=== PATIENT | female | born 1930 | race American Indian/Alaskan Native ===

== ENCOUNTER 2017-04-08 14:58 | Inpatient (IN) | payer MEDICARE, BC ==
--- NOTE | 2017-04-08 15:31 | ED PDOC ---
Arrival/HPI <Daniele Smith - Last Filed: 04/08/17 18:30> <Brenton Smith DO - Last Filed: 04/08/17 22:23> - General Chief Complaint: Trauma Time Seen by Provider: 04/08/17 15:19 - History of Present Illness Narrative History of Present Illness (Text): 04/08/17 15:47 86 F w/ PMHx pertinent for HTN, Carotid stenosis and CAD on ASA, presents s/p a fall yesterday. Patient's daughter is at bedside also providing history. Patient states that she fell today as well, but her son caught her before she hit the floor. Patient denies hitting her head and denies loss of consciousness. Pt states that she hurt her R wrist and her R hip when she fell. As for the fall yesterday, Patient states that she did not trip and fall, but that she was standing at her dresser and felt herself falling to the ground. Pt denies dizziness, palpitations, and chest pain. Patient also denies any other injury. 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 She does not remember when the last time that she had an ECHO is, but states that she had a monitor ( presumably a holter monitor) 6 months ago for 24 hours. Pt denies f/ch/n/v/d. (Daniele Smith) Past Medical History - Cardiac Hx Hypertension: Yes - Pulmonary Hx Lung Cancer: Yes - Neurological Hx Paralysis: No - Hematological/Oncological Hx Blood Transfusions: No Hx Blood Transfusion Reaction: No Hx Cancer: Yes (right Breast, lung ca) - Musculoskeletal/Rheumatological Hx Musculoskeletal Disorders: Yes Hx Arthritis: Yes Hx Falls: Yes Hx Osteoporosis: Yes - Psychiatric Hx Psychophysiologic Disorder: No Hx Anxiety: No Hx Bipolar Disorder: No Hx Depression: No Hx Emotional Abuse: No Hx Hallucinations: No Hx Panic Disorder: No Hx Post Traumatic Stress Disorder: No Hx Psychosis: No Hx Physical Abuse: No Hx Schizophrenia: No Hx Sexual Abuse: No Hx Substance Use: No - Surgical History Hx Cardiac Catheterization: Yes Hx Coronary Stent: No - Anesthesia Hx Anesthesia: Yes Hx Anesthesia Reactions: No Hx Malignant Hyperthermia: No - Suicidal Assessment Feels Threatened In Home Enviroment: No <Daniele Smith - Last Filed: 04/08/17 18:30> Family/Social History Smoking Status: Former Smoker Hx Alcohol Use: Yes (occassional) Hx Substance Use: No <Daniele Smith - Last Filed: 04/08/17 18:30> Family/Social History: No Known Family HX <Brenton Smith DO - Last Filed: 04/08/17 22:23> Allergies/Home Meds <Daniele Smith - Last Filed: 04/08/17 18:30> <Brenton Smith DO - Last Filed: 04/08/17 22:23> Allergies/Adverse Reactions: Allergies No Known Allergies Allergy (Verified 11/23/13 13:45) Home Medications: Home Meds Medication Instructions Recorded Confirmed Amlodipine Besylate [Norvasc] 10 mg PO QAM 11/23/13 04/08/17 Anastrozole [Arimidex] 1 mg PO DAILY 11/23/13 04/08/17 Aspirin [Aspir 81] 81 mg PO DAILY 11/23/13 04/08/17 Calcium/Cholecalciferol [Vitamin D 125 mg PO Q30D 11/23/13 04/08/17 90 mg-5000 Iu] Carvedilol [Coreg] 25 mg PO BID 11/23/13 04/08/17 Doxazosin Mesylate [Cardura] 1 mg PO HS 11/23/13 04/08/17 Megestrol Acetate [Megace] 40 mg PO BID 11/23/13 04/08/17 traMADol/Acetaminophen [Ultracet 1 tab PO BID PRN 11/23/13 04/08/17 325 MG-37.5 MG] Pentoxifylline [Pentoxil] 1 tab PO DAILY 06/11/16 04/08/17 Rosuvastatin Calcium [Crestor] 10 mg PO DAILY 06/11/16 04/08/17 Pentoxifylline [Pentoxil] 400 mg PO TID 04/08/17 04/08/17 Medical Decision Making <Daniele Smith - Last Filed: 04/08/17 18:30> <Brenton Smith DO - Last Filed: 04/08/17 22:23> ED Course and Treatment: Assessed 04/08/17 13:50 Impression 86 F w/ PMHx pertinent for CAD on ASA presents s/p fall yesterday with injury to her R wrist and R hip. Patient has fallen two other times as well, but was caught by a family member before she hit the ground. Plan - Pt denies any pain, hold pain medications - XR R Hip - XR R Wrist and R Hand - CBC, CMP, UA - Urine Cx - Coags - Cardiac Iso's - Head CT - EKG Reassessed 04/08/17 16:32 - R wrist XR shows distal radial fracture - R hip XR shows indeterminate reading of R hip - CBC shows anemia; base line not determined - Iron & TIBC - CT R Hip - Trope Negative X 1, Coags slightly elevated - CXR shows NSR with First Degree AV Block - UA, Urine Cx pending Reassessed 04/08/17 17:50 - D/w Dr. Chandler. He asked to consult Cardiology, Nephrology, and Orthopedics. He stated that because the pt fell yesterday, there was no need for an emergent orthopedic consult, and that ortho can be consulted tomorrow. - Nurse tech will splint wrist - CT Hip shows oblique comminuted fracture on R hip - UA is negative for UTI -Pt admitted to Dr. Romero service on telemetry (Daniele Smith) 04/08/17 In agreement with resident note, which includes further HPI details. Patient was seen and evaluated with resident, came up with plan and treatment together. (Brenton Smith DO) - Lab Interpretations Lab Results: 04/08/17 15:35 04/08/17 15:35 Lab Results 04/08/17 15:35: Iron 14 L, TIBC 289, % Saturation 5 L 04/08/17 15:35: Sodium 140, Potassium 5.0, Chloride 110 H, Carbon Dioxide 19 L, Anion Gap 16, BUN 25 H, Creatinine 2.2 H, Est GFR ( Amer) 26, Est GFR ( Non-Af Amer) 21, Random Glucose 112 H, Calcium 8.9, Magnesium 2.3 H, Total Bilirubin 0.8, AST 75 H, ALT 92 H, Alkaline Phosphatase 144 H, Lactate Dehydrogenase 581, Total Creatine Kinase 153, Troponin I 0.02 D, Total Protein 6.5, Albumin 3.7, Globulin 2.8, Albumin/Globulin Ratio 1.3 04/08/17 15:35: PT 12.2 H, INR 1.13 H, APTT 24.9 04/08/17 15:35: WBC 10.7 D, RBC 3.51, Hgb 9.3 L, Hct 28.6 L, MCV 81.5, MCH 26.5 , MCHC 32.5, RDW 15.8 H, Plt Count 185, MPV 10.4, Gran % 85.9 H, Lymph % (Auto) 4.3 L, [place] % (Auto) 9.8 H, Eos % (Auto) 0.0 L, Baso % (Auto) 0.0, Gran # 9.18 H , Lymph # 0.5 L, [place] # 1.1 H, Eos # 0.0, Baso # 0.00, Neutrophils % (Manual) 92 H, Band Neutrophils % 0, Lymphocytes % (Manual) 3 L, Atypical Lymphs % 0, Monocytes % (Manual) 5, Immature Lymphocytes 0, Platelet Evaluation Normal - RAD Interpretation Radiology Orders: 04/08/17 15:27 HEAD W/O CONTRAST [CT] Stat HAND RIGHT 3 VIEWS [RAD] Stat HIP MIN 2V W/ PELVIS RT [RAD] Stat WRIST, RIGHT 3 VIEWS [RAD] Stat 04/08/17 15:29 CHEST ONE VIEW [RAD] Stat 04/08/17 17:02 HIP WITHOUT CONTRAST RIGHT [CT] Stat <SarahDaniele Alexiajennyfer - Last Filed: 04/08/17 18:30> - PA / LEGAL SPECIALIST / Resident Statement FERDINAND has reviewed & agrees with the documentation as recorded. FERDINAND has examined the patient and agrees with the treatment plan. - Scribe Statement The provider has reviewed the documentation as recorded by the Scribe <Brenton Smith DO - Last Filed: 04/08/17 22:23> - Scribe Statement 04/08/2017 Aubrie Peoples Provider Scribe Attestation: All medical record entries made by the Scribe were at my direction and personally dictated by me. I have reviewed the chart and agree that the record accurately reflects my personal performance of the history, physical exam, medical decision making, and the department course for this patient. I have also personally directed, reviewed, and agree with the discharge instructions and disposition. (Brenton Smith DO) Disposition/Present on Arrival - Present on Arrival Any Indicators Present on Arrival: Yes History of DVT/PE: No History of Uncontrolled Diabetes: No Urinary Catheter: Yes History of Decub. Ulcer: No History Surgical Site Infection Following: None - Disposition Have Diagnosis and Disposition been Completed?: Yes Disposition Time: 17:40 Patient Plan: Admission, Telemetry <Daniele Smith - Last Filed: 04/08/17 18:30> - Present on Arrival Any Indicators Present on Arrival: No Urinary Catheter: No <Brenton Smith DO - Last Filed: 04/08/17 22:23> - Disposition Diagnosis: Wrist fracture, Fall, Hip fracture, Near syncope Disposition: HOSPITALIZED Patient Problems: Current Active Problems Problem Status Onset Wrist fracture Acute Fall Acute Condition: FAIR
[2017-04-08 16:12] LABS: GRAN # 9.18 (1.4-6.5); GRAN % 85.9 % (50.0-68.0); HEMATOCRIT 28.6 % (36.0-48.0); LYMPH # 0.5 (1.2-3.4); LYMPH % 4.3 % (22.0-35.0); MEAN CELL VOLUME 81.5 fl (80.0-105.0); MEAN CORPUSCULAR HEMOGLOBIN 26.5 pg (25.0-35.0); MEAN CORPUSCULAR HGB CONC 32.5 g/dl (31.0-37.0); MEAN PLATELET VOLUME 10.4 fl (7.0-11.0); MONO # 1.1 (0.1-0.6); MONO % 9.8 % (1.0-6.0); PLATELET COUNT 185 10^3/uL (120.0-450.0); RED CELL DISTRIBUTION WIDTH 15.8 % (11.5-14.5); WHITE BLOOD COUNT 10.7 10^3/ul (4.5-11.0)
[2017-04-08 16:23] LABS: INR 1.13 (0.93-1.08); PARTIAL THROMBOPLASTIN TIME 24.9 Seconds (23.7-30.8)
[2017-04-08 16:25] LABS: ALB/GLOB RATIO 1.3 (1.1-1.8); BILIRUBIN,TOTAL 0.8 mg/dL (0.2-1.3); CALCIUM 8.9 mg/dL (8.4-10.5); MAGNESIUM 2.3 mg/dL (1.7-2.2); TOTAL PROTEIN 6.5 g/dL (5.8-8.3)
[2017-04-08 16:37] LABS: TROPONIN I 0.02 ng/mL
--- NOTE | 2017-04-08 16:52 | CT ---
PROCEDURE: CT HEAD WITHOUT CONTRAST. HISTORY: r/o fx and ICH COMPARISON: None available. TECHNIQUE: Axial computed tomography images were obtained through the head/brain without intravenous contrast. Radiation dose: Total exam DLP = 790.32 mGy-cm. This CT exam was performed using one or more of the following dose reduction techniques: Automated exposure control, adjustment of the mA and/or kV according to patient size, and/or use of iterative reconstruction technique. FINDINGS: HEMORRHAGE: No intracranial hemorrhage. BRAIN: No mass effect or edema. Intracranial atherosclerosis. Mild scattered white matter hypodensities, which are nonspecific, but often seen with chronic microvascular ischemic disease. Please note that MRI with diffusion imaging is more sensitive in the detection of acute ischemic event. VENTRICLES: No hydrocephalus. CALVARIUM: Unremarkable. PARANASAL SINUSES: Unremarkable as visualized. No significant inflammatory changes. MASTOID AIR CELLS: Unremarkable as visualized. No inflammatory changes. OTHER FINDINGS: None. IMPRESSION: Generalized atrophy. Mild scattered nonspecific white matter changes.
--- NOTE | 2017-04-08 17:06 | RAD ---
PROCEDURE: Right wrist radiographs Right hand radiographs HISTORY: r/o fx COMPARISON: None available. FINDINGS: Rotated lateral view. BONES: Impacted comminuted fracture of the distal radius. Fracture of the ulna styloid process. Diffuse osseous demineralization. Degenerative changes. Patient's ring projects over the mid proximal 4th phalanx obscuring evaluation of the underlying osseous detail. JOINTS: No dislocation. SOFT TISSUES: Soft tissue swelling. No evidence of radiopaque foreign body OTHER FINDINGS: None. IMPRESSION: Impacted comminuted fracture of the distal radius. Fracture of the ulna styloid process. Associated soft tissue swelling.
--- NOTE | 2017-04-08 17:10 | RAD ---
Indication: Rule out fracture Right hip with pelvis Comparison: None available Findings: Diffuse osseous demineralization limits evaluation for acute fracture lines. Severe degenerative changes of bilateral hip joints including joint space narrowing. Oblique fracture lines traversing from the right greater trochanter into the proximal femoral shaft inferiorly. Soft tissues appear unremarkable. No evidence of radiopaque foreign body. Impression: Oblique fracture lines traversing from the right greater trochanter into the proximal femoral shaft inferiorly.
--- NOTE | 2017-04-08 17:21 | RAD ---
HISTORY: r/o infiltrate COMPARISON: Chest x-ray performed 08/11/14, CT chest without IV contrast performed 05/09/15 TECHNIQUE: Chest, one view. FINDINGS: LUNGS: Hyperinflation may be seen in the setting of COPD. Right hilar prominence. Eventration of the left hemidiaphragm. Rounded contour at the right lung base abutting the hemidiaphragm possibly related eventration however neoplasm cannot be excluded. PLEURA: No significant pleural effusion identified. No definite pneumothorax . CARDIOVASCULAR: Borderline cardiomegaly. OSSEOUS STRUCTURES: Osseous demineralization. Degenerative changes. Calcific tendinitis, right shoulder. VISUALIZED UPPER ABDOMEN: Unremarkable. OTHER FINDINGS: Right axillary clips. IMPRESSION: Hyperinflation may be seen in the setting of COPD. Right hilar prominence. Rounded contour at the right lung base abutting the hemidiaphragm possibly related eventration however neoplasm cannot be excluded. Eventration of the left hemidiaphragm. CT of the chest suggested for further evaluation, with IV contrast if possible.
[2017-04-08 17:33] LABS: ATYPICAL LYMPHOCYTE 0 % (0.0-0.0); BAND 0 % (0-2); NEUTROPHIL 92 % (50.0-70.0); PLATELET ESTIMATE NORMAL (NORMAL)
[2017-04-08 18:31] LABS: PH,URINE 5.5 (4.7-8.0); URINE BILIRUBIN NEGATIVE (NEGATIVE); URINE BLOOD TRACE-INTACT (NEGATIVE); URINE GLUCOSE (UA) NEGATIVE (NEGATIVE); URINE KETONE TRACE mg/dL (NEGATIVE); URINE LEUKOCYTE ESTERASE NEGATIVE Leu/uL (NEGATIVE); URINE PROTEIN 30 mg/dL (<30 mg/dL); URINE UROBILINOGEN 0.2 E.U./dL (<1 E.U./dL)
[2017-04-08 18:39] LABS: URINE APPEARANCE SL CLOUDY (CLEAR); URINE COLOR YELLOW (YELLOW)
[2017-04-08 18:39] LABS: IRON 14 ug/dL (45-180)
--- NOTE | 2017-04-08 18:42 | CT ---
EXAM: CT Right Lower Extremity Without Intravenous Contrast, Hip EXAM DATE/TIME: 04/08/2017 5:02 PM CLINICAL HISTORY: 86 years old, female; Pain; Hip; Bilateral; Additional info: F/u to x-ray today TECHNIQUE: Axial computed tomography images of the right hip without intravenous contrast. All CT scans at this facility use one or more dose reduction techniques, viz.: automated exposure control; ma/kV adjustment per patient size (including targeted exams where dose is matched to indication; i.e. head); or iterative reconstruction technique. Coronal and sagittal reformatted images were created and reviewed. COMPARISON: DX - HIP MIN 2V W/ PELVIS RT 04/08/2017 4:19:33 PM FINDINGS: Bones/joints: Bony structures are osteopenic. There are degenerative changes. Visualized portion of the right ilium is intact. There is narrowing of the sacroiliac joints. Ischia and pubi are intact. Degenerative changes at both hips joint space narrowing and osteophyte formation. There is subchondral cysts in the right femoral head. There is a minimally comminuted nondisplaced fracture in the proximal femoral diaphysis. Fracture line extends superiorly into the greater trochanter. There is soft tissue swelling in the right hip at the fracture site. Soft tissues: See above. Vasculature: There are vascular calcifications. Bowel: There is a nonobstructed gas pattern in the visualized pelvis. Ileocecal region is unremarkable. There is diverticulosis. Reproductive: Uterus is absent. There are no adnexal masses. IMPRESSION: Minimally comminuted oblique fracture extending from the greater trochanter into the proximal right femoral diaphysis; osteopenia degenerative change Additional findings as described above.
[2017-04-08 18:48] LABS: URINE AMORPHOUS SEDIMENT FEW; URINE BACTERIA MOD (NEG)
[2017-04-08 22:03] VITALS: BMI 18.6
[2017-04-08] MEDS ORDERED: TraMADol/Apap 37.5/325 mg Tab PO PRN (23:26)
[2017-04-09] MEDS: HYDROmorphone 0.5 mg/0.5 ml ISec SC PRN ×3 (00:13→21:30)
[2017-04-09 07:05] LABS: BASO # 0.01 K/mm3 (0.0-2.0); BASO % 0.1 % (0.0-3.0); EOS % 0.3 % (1.5-5.0); GRAN # 5.52 (1.4-6.5); GRAN % 80.5 % (50.0-68.0); LYMPH # 0.6 (1.2-3.4); MEAN CELL VOLUME 81.4 fl (80.0-105.0); MEAN CORPUSCULAR HEMOGLOBIN 25.7 pg (25.0-35.0); MEAN CORPUSCULAR HGB CONC 31.6 g/dl (31.0-37.0); MEAN PLATELET VOLUME 10.3 fl (7.0-11.0); MONO # 0.7 (0.1-0.6); MONO % 10.1 % (1.0-6.0); RED CELL DISTRIBUTION WIDTH 16.2 % (11.5-14.5); WHITE BLOOD COUNT 6.9 10^3/ul (4.5-11.0)
[2017-04-09 07:43] LABS: ALB/GLOB RATIO 1.2 (1.1-1.8); BILIRUBIN,TOTAL 0.6 mg/dL (0.2-1.3); CALCIUM 8.2 mg/dL (8.4-10.5); POTASSIUM 4.7 mmol/L (3.6-5.0); TOTAL PROTEIN 5.4 g/dL (5.8-8.3)
[2017-04-09 08:02] LABS: IRON < 10 ug/dL (45-180)
--- NOTE | 2017-04-09 08:25 | CP.PCM.PCO ---
Physician Communication Note - Physician Communication Note Physician Communication Note: HgB7.9/Needs Hip pinning/2 u PRBC
[2017-04-09 08:46] LABS: HEMATOCRIT 25.2 % (36.0-48.0); MEAN CELL VOLUME 81.6 fl (80.0-105.0); MEAN CORPUSCULAR HEMOGLOBIN 26.2 pg (25.0-35.0); MEAN CORPUSCULAR HGB CONC 32.1 g/dl (31.0-37.0); MEAN PLATELET VOLUME 9.5 fl (7.0-11.0); RED CELL DISTRIBUTION WIDTH 16.1 % (11.5-14.5); WHITE BLOOD COUNT 7.8 10^3/ul (4.5-11.0)
--- NOTE | 2017-04-09 11:10 | CARD ---
APPROVED REPORT EXAM: Two-dimensional and M-mode echocardiogram with Doppler and color Doppler. INDICATION Pre-Op 2D DIMENSIONS Left Atrium (2D)4.0 (1.6-4.0cm)IVSd1.3 (0.7-1.1cm) LVDd4.6 (3.9-5.9cm)PWd1.4 (0.7-1.1cm) LVDs2.8 (2.5-4.0cm)FS (%) 39.6 % LVEF (%)70.2 (>50%) M-Mode DIMENSIONS Aortic Root3.30 (2.2-3.7cm)Aortic Cusp Exc.1.80 (1.5-2.0cm) Aortic Valve AoV Peak Lztyrsfz477.0cm/Matthew Peak GR.13mmHg Mitral Valve MV E Vxdzxszt97.6cm/sMV A Iuydwkdn95.6cm/sE/A ratio0.8 TDI Lateral E' Peak V9.75cm/sMedial E' Peak V6.73cm/sE/Lateral E'8.2 E/Medial E'11.8 Pulmonary Valve PV Peak Tznpdrxu87.0cm/sPV Peak Grad.3mmHg Tricuspid Valve TR Peak Geqhynka748xl/sRAP AHBNKXSK00xyEoHV Peak Gr.40mmHg IMXZ86voLo LEFT VENTRICLE The left ventricle is normal size. There is mild concentric left ventricular hypertrophy. The left ventricular function is normal.EF-65-70% There is normal LV segmental wall motion. Transmitral Doppler flow pattern is Grade III-reversible restrictive diastolic dysfunction. No left ventricle thrombus noted on this study. There is no ventricular septal defect visualized. There is no left ventricular aneurysm. There is no mass noted in the left ventricle. RIGHT VENTRICLE The right ventricle is normal size. There is normal right ventricular wall thickness. The right ventricular systolic function is normal. ATRIA The left atrium is borderline dilated. The right atrium size is normal. The interatrial septum is intact with no evidence for an atrial septal defect. AORTIC VALVE The aortic valve is thickened but opens well. No aortic regurgitation is present. There is no aortic valvular stenosis. There is no aortic valvular vegetation. MITRAL VALVE The mitral valve is thickened but opens well. Mitral regurgitation is mild. There is no mitral valve stenosis. There is no evidence of mitral valve prolapse. TRICUSPID VALVE The tricuspid valve leaflets are thickened , but open well. There is mild tricuspid regurgitation.RVSP-50 mmof Hg. There is mild pulmonary hypertension. There is no tricuspid valve stenosis. There is no tricuspid valve prolapse or vegetation. PULMONIC VALVE The pulmonic valve is borderline thickened. There is trace pulmonic valvular regurgitation. There is no pulmonic valvular stenosis. GREAT VESSELS The aortic root is normal in size. The ascending aorta is normal in size. The pulmonary artery is normal. The IVC is normal in size and collapses >50% with inspiration. PERICARDIAL EFFUSION There is no pleural effusion. There is no pericardial effusion. <Conclusion> Normal chamber Size. EF-65-70%. Mild MR. MIld TR. RVSP-50 mmof Hg. No Pericardial effusion.
--- NOTE | 2017-04-09 12:01 | CON ---
DATE: 04/09/2017 LOCATION: The patient is in 272, bed [address]. HISTORY OF PRESENT ILLNESS: An 86-year-old female tripped and fell before admission, sustained a fracture of the right distal radius and right hip at the intertrochanteric region. She is being prepared for surgery by Dr. Romero and Dr. Portillo, and the patient was told that the surgery is the only way we could help her to get her up out of bed and stop the pain of the fracture. When the patient is medically cleared, we could perform ORIF of the right hip with and thert wrist fractur and to put a cast on her right wrist. She is left-hand dominant. She has signed a consent. The family was notified and we can proceed with surgery when she is cleared medically. FINAL DIAGNOSES: 1. Unstable intertrochanteric fracture, right hip. 2. impacted fracture, right distal radius. PLAN: To do surgery on the right hip and a cast on the right wrist. Sudheer Hsu DO ELEAZAR
[2017-04-09] MEDS ORDERED: Bupivacaine 0.5% Inj(30mL) ONE (13:49)
--- NOTE | 2017-04-09 14:18 | CON ---
CONSULT SERVICE: Cardiology. REASON FOR THE CONSULTATION: Follow-up preop evaluation for a right forearm OR internal fixation, status post fall and status post fracture. BRIEF CLINICAL HISTORY: This is an 86-year-old female with past medical history significant for hypertension, hyperlipidemia, nonobstructive coronary artery disease, status post cardiac catheterization 02/2014, history of lung CA wedge resection, history of breast CA status post mastectomy 10 years ago, history of hypertension, hyperlipidemia, who fell down and sustained right wrist fracture and forearm fracture requiring an OR internal fixation. Denies any chest pain. Denies any shortness of breath. Denies any palpitations. PAST MEDICAL HISTORY: Significant for hypertension, hyperlipidemia, abnormal stress test in 02/18/2014 following which the patient underwent catheterization that revealed nonobstructive coronary artery disease. PAST SURGICAL HISTORY: Significant for status post wedge resection of the right upper lobe of the lung on 02/24/2014, history of breast CA status post mastectomy followed by chemotherapy and radiation therapy. Previous cardiac workup as follows: The patient had a stress test on 02/2014 the preop evaluation for lung resection that was abnormal. The patient underwent cardiac catheterization dated 02/18/2014 that showed nonobstructive coronary artery disease limited only to the diagonal 1, 55% ostial disease, small caliber vessel, major epicardial coronary artery, LAD, RCA, circumflex essentially for significant disease, non-flow obstructive stenosis, LV function ejection fraction 62% to 65%, medical treatment recommended. The patient was cleared for surgery. The patient had repeat stress test done on 06/11/2016 that showed equivocal SPECT myocardial study, mildly reversible distal anteroseptal infarct, defect could be due to ischemia vs changing rest position, normal Gated valve motion. When compared to previous study dated 02/12/2014, the scan findings are similar. It is important to mention that first stress test was done on 02/12/2014 following this cardiac catheterization that revealed nonobstructive coronary artery disease. Recent stress test dated 06/11/2016, no change from before. The patient had echocardiography done in the past dated 02/11/2014 that showed ejection fraction preserved 60% to 65%, diastolic dysfunction, trace aortic regurgitation, lkueh-bd-vvvu mitral regurgitation, uktx-fn-aptjtkmp tricuspid regurgitation, RV systolic pressure of 48. CURRENT MEDICATIONS: At home, the patient was taking pentoxifylline 400 mg 3 times a day, Norvasc 10 mg daily, tramadol 1 tablet daily, Crestor 10 mg daily, Megace, Cardura 1 mg p.o. at bedtime, Coreg 25 mg b.i.d., aspirin 81 mg and Arimidex 1 mg daily for breast CA. REVIEW OF SYSTEMS: As per HPI. PHYSICAL EXAMINATION: GENERAL: Height of the patient 5 feet 6 inches, weight of the patient 115 pounds, body mass index 18.6 kg/m2. VITAL SIGNS: Temperature afebrile, heart rate 58, blood pressure 142/49. HEENT: PERRLA. Extraocular muscles intact. NECK: Supple. No carotid bruit. No thyromegaly. CHEST: Clear to auscultation. HEART: S1 and S2, regular. ABDOMEN: Soft. EXTREMITIES: Clubbing and cyanosis negative. LABORATORY DATA: Blood workup as follows: WBC 7.8, hemoglobin 8.1, hematocrit 25.2, platelet count 137. Chemistry shows sodium 141, potassium 4.7, chloride 113, carbon dioxide 20, anion gap of 13, BUN 25, creatinine 2. IMPRESSION: Status post fall, status post fracture right forearm requiring OR internal fixation, history of hypertension, hyperlipidemia, preserved LV function, ejection fraction 60% to 65%, trace aortic regurgitation, fnnd-gp-lwhiawce mitral regurgitation, fbdg-qi-hgklqqxw tricuspid regurgitation, RV systolic pressure of 48 dated 02/11/2014. The patient had a cardiac catheterization dated 02/18/2014, nonobstructive coronary artery disease only limited to diagonal 1, history of breast CA status post mastectomy, status post wedge resection of the lung. RECOMMENDATION: No absolute contraindication for surgery. No evidence of ischemia. No evidence of chest pain, arrhythmia, or congestive heart failure. The patient is cleared to go from cardiology point of view, though the patient has baseline anemia, we will wait repeat stat CBC. If the hemoglobin repeat is less than 8, we will give 2 units of blood, prepare for surgery. The patient has renal insufficiency. We will look into it that whether this is old or new because it appears when we look closely the patient had renal insufficiency dated 08/11/2014 with 2.7 creatinine. In 2013, the patient was normal, was given gentle hydration and monitored H and H. We will also do the anemia basic workup, iron level, TIBC, ferritin, B12 folate level, and repeat stat CBC. If the hemoglobin is less than 8, we will give 2 units of packed RBC. We will follow with you. Discussed with Dr. 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 Continue perioperative beta gt. We will also get lipid profile, TSH, hemoglobin A1c tomorrow and we will get echo. We will follow with you. Talia Al MD cc: Dr. Romero and Dr. Sudheer Hsu.
[2017-04-09] MEDS ORDERED: Rocuronium 10 mg/ml (5 ml) ONE (14:22)
[2017-04-09] MEDS ORDERED: Etomidate 20 mg/10ml Inj IV ONE (14:22)
[2017-04-09] MEDS ORDERED: Succinylcholine 200 mg/10 ml Inj IV ONE (14:22)
[2017-04-09] MEDS ORDERED: ePHEDrine 50 mg/ml Inj ONE (15:09)
[2017-04-09] MEDS ORDERED: Thrombin Topical 5,000 IU Spray Kit ONE (16:03)
[2017-04-09] MEDS ORDERED: Absorbable Gelatin Sponge Size 100 ONE (16:03)
[2017-04-09] MEDS ORDERED: Absorbable Gelatin Sponge Size 12-7 ONE (16:03)
[2017-04-09] MEDS ORDERED: Glycopyrrolate 0.2 mg/ml (2ml vial) ONE (16:57)
[2017-04-09] MEDS ORDERED: HYDROmorphone 0.5 mg/0.5 ml ISec IVP PRN (17:29)
[2017-04-09] MEDS ORDERED: Sodium Chloride 0.9% 1,000 ML IV SCH (17:30)
[2017-04-09] MEDS ORDERED: HYDROmorphone 0.5 mg/0.5 ml ISec SC PRN (17:34)
[2017-04-09] MEDS ORDERED: HYDROmorphone 0.5 mg/0.5 ml ISec ONE (18:17)
[2017-04-09] MEDS ORDERED: HYDROmorphone 0.5 mg/0.5 ml ISec IVP ONE (18:17)
--- NOTE | 2017-04-09 18:22 | HP ---
LOCATION: Room 272, bed 1. CHIEF COMPLAINT: Multiple falls-fracture hip, wrist. HISTORY OF PRESENT ILLNESS: The patient is an 86-year-old -[place] female, who has been in her usual state of health with only mild weight loss, presumptively dietary for the past 3 to 4 months. She has noted, in the last 2 days, 3 episodes of syncope without any initiating cause or set of symptomatology. She would be standing and all of a sudden find herself falling to the floor. One time, her son caught her and kept her from falling. On the day of admission, she is brought to the emergency room by her family, because she is having trouble walking and her wrist is black and blue and cannot grasp. X-rays in the emergency room demonstrated fracture of hip with impaction and fracture of the radius and ulna styloid. PAST MEDICAL HISTORY: Includes carcinoma of the breast with Arimidex for the past 11 years and carcinoma of the lung totally free of any disease for 4 years. Other medical histories include hypertension with some prerenal insufficiency and peripheral vascular disease with claudication in her calf, right greater than left on one-half block traveling. MEDICATIONS: Include Trental 400 t.i.d., Norvasc 10, Ultracet b.i.d., Crestor 10, Megace 40 b.i.d., Cardura 1 at bedtime, Coreg 25 b.i.d., aspirin 81 daily, Arimidex 1 mg and calcium 125 with vitamin D 5000 monthly. ALLERGIES: NONE. PHYSICAL EXAMINATION: GENERAL: She is 5 feet 6 inches, 115 pounds and she has obvious fractures of the right wrist and hip with diminished pedal pulses. VITAL SIGNS: Stable. RESPIRATION: Clear without any effort. EYES: Her conjunctivae are pale. IMMEDIATE LABORATORY DATA: Shows a hemoglobin of 8.9 dropping by morning to 7.9, presumptively secondary to bleeding into the hip. IMPRESSION UPON CONSULTATION: 1. Syncope with falls. 2. Fracture of the hip. 3. Fracture of the right wrist. 4. Peripheral arterial disease. 5. Chronic renal disease. This dictation will be signed without being read. José Romero MD [facility] # [id number]
[2017-04-09] MEDS: Dextrose 5%/0.45% NS 1,000 ML IV SCH (19:04)
[2017-04-09 19:28] LABS: BASO # 0.01 K/mm3 (0.0-2.0); BASO % 0.1 % (0.0-3.0); EOS % 0.1 % (1.5-5.0); GRAN % 82.9 % (50.0-68.0); HEMATOCRIT 30.1 % (36.0-48.0); LYMPH # 0.5 (1.2-3.4); LYMPH % 3.9 % (22.0-35.0); MEAN CELL VOLUME 83.6 fl (80.0-105.0); MEAN CORPUSCULAR HEMOGLOBIN 27.5 pg (25.0-35.0); MEAN CORPUSCULAR HGB CONC 32.9 g/dl (31.0-37.0); MEAN PLATELET VOLUME 10.9 fl (7.0-11.0); MONO # 1.7 (0.1-0.6); PLATELET COUNT 133 10^3/uL (120.0-450.0); RED CELL DISTRIBUTION WIDTH 15.4 % (11.5-14.5); WHITE BLOOD COUNT 12.9 10^3/ul (4.5-11.0)
[2017-04-09 20:20] LABS: BAND 1 % (0-2); NEUTROPHIL 92 % (50.0-70.0)
[2017-04-09 20:21] LABS: ANISOCYTOSIS SLIGHT; BURR CELLS SLIGHT; OVALOCYTES SLIGHT; PLATELET ESTIMATE NORMAL (NORMAL)
--- NOTE | 2017-04-09 21:40 | CP.PCM.PN ---
Subjective - Date & Time of Evaluation Date of Evaluation: 04/09/17 Time of Evaluation: 21:37 - Subjective Subjective: S:Nurse requested to insert a heparin lock. Patient has no complaints. Pertinent medical record was reviewed. O: Last Vital Signs 3 Temp 97.8 F 04/09/17 18:23 Pulse 64 04/09/17 18:23 Resp 20 04/09/17 18:23 BP 101/60 04/09/17 19:01 Pulse Ox 100 04/09/17 18:23 Awake , alert , not in distress. LUNGS: Normal breathing [attern. A: Poor venous access. Encounter for intravenous line placement. P: # 24 angiocath was inserted in left forearm. Objective - Vital Signs/Intake and Output Vital Signs (last 24 hours): Temp Pulse Resp BP Pulse Ox 97.8 F 64 20 101/60 100 04/09/17 18:23 04/09/17 18:23 04/09/17 18:23 04/09/17 19:01 04/09/17 18:23 Intake and Output: 04/09/17 04/10/17 18:59 06:59 Intake Total 366 Output Total 300 Balance 66 - Medications Medications: Current Medications Anastrozole (Arimidex 1 Mg Tab) 1 mg PO DAILY [facility] Last Admin: 04/09/17 11:25 Dose: Not Given Carvedilol (Coreg) 25 mg PO BID [facility] Last Admin: 04/09/17 19:01 Dose: Not Given Darbepoetin Jordy (Aranesp) 60 mcg SC ONCE ONE Stop: 04/10/17 10:01 Doxazosin Mesylate (Cardura) 1 mg PO 2200 [facility] Last Admin: 04/09/17 21:29 Dose: 1 mg Hydromorphone HCl (Dilaudid) 0.5 mg SC Q4H PRN PRN Reason: Pain, severe (8-10) Last Admin: 04/09/17 21:30 Dose: 0.5 mg Hydromorphone HCl (Dilaudid) 0.5 mg SC Q4H PRN PRN Reason: Pain, moderate (4-7) Dextrose/Sodium Chloride (Dextrose 5%/0.45% Ns 1000 Ml) 1,000 mls @ 60 mls/hr IV .[id number] [facility] Last Admin: 04/09/17 19:04 Dose: 60 mls/hr Polysaccharide Iron Complex (Ferrex-150) 150 mg PO DAILY [facility] Tramadol/Acetaminophen (Ultracet 37.5/325 Mg) 1 tab PO Q4H PRN PRN Reason: Pain, moderate (4-7) - Labs Labs: 04/09/17 19:25 04/09/17 05:15 PT 12.2 Seconds (9.9-11.8) H 04/08/17 15:35 INR 1.13 (0.93-1.08) H 04/08/17 15:35 APTT 24.9 Seconds (23.7-30.8) 04/08/17 15:35
--- NOTE | 2017-04-09 23:13 | CP.PCM.CON ---
<Jovanny Pedraza - Last Filed: 04/09/17 23:00> History of Present Illness - History of Present Illness History of Present Illness: Neurology Consult Note for Dr. Smith Service Consulted for: Syncope, multiple falls HPI: This is an 86 yo AA F with PMH of HTN, Carotid Stenosis, CAD on s/p cath on ASA, PVD, pre-renal insufficiency, Lung carcinoma (remission x4 yrs), and Breast Ca (on Arimidex x11 yrs, current) who presented to [facility] with complaint of 3 episodes of falls, which family are reporting as syncopal episodes, but which patient reports only as falls with unclear etiology (specifically denies tripping, balance loss, syncope/near-syncope, or acute focal/generalized weakness, but cannot clearly describe how she keeps falling). Denies LOC, head trauma, room-spinning, paresthesias; reports being cuaght by family during previous episodes, but was alone at time of this episode, and landed on her R arm and hip. Denies any sick contacts or recent travel. Denies chest pain, shortness of breath, diarrhea, melena/hematochezia, straining when moving bowels , palpitations, or gaps in memory. Admits to nausea x2-3 days, lack of appetite progressively worsening for > 1 month, and chronic constipation ( usually moves bowels once per 2-3 days). All other ROS in 12-point system review were negative. Of note from ED documentation, at time of admission, patient reported to ED staff a cardiac stress test 1 yr ago that was indeterminate, and a 24-hour holter monitor approximately 6 months prior (results unknown by pt). PMH: as above PSH: Prior cardiac cath, pending R-hip ORIF today FHx: Denies SHx: Admits former tobacco use (~2ppd x 30 yrs, no use in last 17 yrs), admits social EtOH (denies binge episode within last 4 wks), denies IVDA/illicits PMD: Dr. Romero Review of Systems - Review of Systems All systems: reviewed and no additional remarkable complaints except (as per HPI ) Past Patient History - Past Social History Smoking Status: Former Smoker - CARDIAC Hx Hypertension: Yes - PULMONARY Hx Lung Cancer: Yes - NEUROLOGICAL Hx Paralysis: No - HEMATOLOGICAL/ONCOLOGICAL Hx Blood Transfusions: Yes Hx Blood Transfusion Reaction: No - MUSCULOSKELETAL/RHEUMATOLOGICAL Hx Arthritis: Yes Hx Falls: Yes Hx Fractures: Yes Hx Osteoporosis: Yes - PSYCHIATRIC Hx Substance Use: No - SURGICAL HISTORY Hx Surgeries: Yes - ANESTHESIA Hx Anesthesia Reactions: No Hx Malignant Hyperthermia: No Meds Allergies/Adverse Reactions: Allergies Allergy/AdvReac Type Severity Reaction Status Date / Time No Known Allergies Allergy Verified 11/23/13 13:45 - Medications Medications: Current Medications Anastrozole (Arimidex 1 Mg Tab) 1 mg PO DAILY [facility] Last Admin: 04/09/17 11:25 Dose: Not Given Carvedilol (Coreg) 25 mg PO BID [facility] Last Admin: 04/09/17 19:01 Dose: Not Given Darbepoetin Jordy (Aranesp) 60 mcg SC ONCE ONE Stop: 04/10/17 10:01 Doxazosin Mesylate (Cardura) 1 mg PO 2200 [facility] Last Admin: 04/09/17 21:29 Dose: 1 mg Hydromorphone HCl (Dilaudid) 0.5 mg SC Q4H PRN PRN Reason: Pain, severe (8-10) Last Admin: 04/09/17 21:30 Dose: 0.5 mg Hydromorphone HCl (Dilaudid) 0.5 mg SC Q4H PRN PRN Reason: Pain, moderate (4-7) Dextrose/Sodium Chloride (Dextrose 5%/0.45% Ns 1000 Ml) 1,000 mls @ 60 mls/hr IV .[id number] [facility] Last Admin: 04/09/17 19:04 Dose: 60 mls/hr Polysaccharide Iron Complex (Ferrex-150) 150 mg PO DAILY [facility] Tramadol/Acetaminophen (Ultracet 37.5/325 Mg) 1 tab PO Q4H PRN PRN Reason: Pain, moderate (4-7) Physical Exam - Constitutional Appears: Non-toxic, No Acute Distress - Head Exam Head Exam: ATRAUMATIC, NORMAL INSPECTION, NORMOCEPHALIC - Eye Exam Eye Exam: EOMI, Normal appearance, PERRL. absent: Conjunctival injection, Scleral icterus Pupil Exam: NORMAL ACCOMODATION. absent: Fixed, Irregular, Unequal - ENT Exam ENT Exam: Mucous Membranes Dry. absent: Mucous Membranes Moist - Neck Exam Neck exam: Positive for: Full Rom, Normal Inspection. Negative for: Tenderness - Respiratory Exam Respiratory Exam: Decreased Breath Sounds (mild-moderate decreased breath sounds in all kramer), Clear to Auscultation Bilateral, Prolonged Expiratory Phase. absent: Accessory Muscle Use, Chest Wall Tenderness, Rales, Rhonchi, Wheezes, NORMAL BREATHING PATTERN - Cardiovascular Exam Cardiovascular Exam: REGULAR RHYTHM, RRR, +S1, +S2. absent: Bradycardia, Tachycardia, Irregular Rhythm, +S4 - GI/Abdominal Exam GI & Abdominal Exam: Normal Bowel Sounds, Soft. absent: Diminished Bowel Sounds , Distended, Firm, Hyperactive Bowel Sounds, Hypoactive Bowel Sounds, Pulsatile Mass, Rigid, Tenderness - Rectal Exam Rectal Exam: Deferred - Extremities Exam Extremities exam: Positive for: pedal pulses present (+1 radials and dorsalis pedis pulses bilaterally). Negative for: calf tenderness, normal inspection ( pain with any RLE movement, tenderness to palpation proximate to R-hip), pedal edema - Neurological Exam Additional comments: Awake and alert, following all commands as able and appropriate, oriented x 3.5 (self, location, time, able to describe who the president is but unable to remember the name) Gross movement of bilateral UE intact and appropriate, 5/5 UE strength, 5/5 L UE outpatient services director strength Movement of R fingers intact, sensation intact, unable to test outpatient services director strength due to splinting/bandaging of RUE Gross movement of RLE intact and appropriate, 5/5 strength Sensation in bilateral LE intact and equal 5/5 bilateral foot flexion/extension - Psychiatric Exam Psychiatric exam: Normal Affect, Normal Mood - Skin Skin Exam: Dry, Intact, Normal Color, Warm Results - Vital Signs Recent Vital Signs: Last Vital Signs Temp 97.8 F 04/09/17 18:23 Pulse 64 04/09/17 18:23 Resp 20 04/09/17 18:23 BP 101/60 04/09/17 19:01 Pulse Ox 100 04/09/17 18:23 - Labs Result Diagrams: 04/09/17 19:25 04/09/17 05:15 Labs: Laboratory Results - last 24 hr 04/09/17 04/09/17 04/09/17 05:15 05:15 05:15 WBC 6.9 D RBC 3.07 L Hgb 7.9 L Hct 25.0 L MCV 81.4 MCH 25.7 MCHC 31.6 RDW 16.2 H Plt Count 139 MPV 10.3 Gran % 80.5 H Lymph % (Auto) 9.0 L [place] % (Auto) 10.1 H Eos % (Auto) 0.3 L Baso % (Auto) 0.1 Gran # 5.52 Lymph # 0.6 L [place] # 0.7 H Eos # 0.0 Baso # 0.01 Neutrophils % (Manual) Band Neutrophils % Lymphocytes % (Manual) Monocytes % (Manual) Platelet Evaluation Anisocytosis (manual) Ovalocytes [place]annie Cells Sodium 141 Potassium 4.7 Chloride 113 H Carbon Dioxide 20 L Anion Gap 13 BUN 25 H Creatinine 2.0 H Est GFR ( Amer) 29 Est GFR (Non-Af Amer) 24 Random Glucose 77 Calcium 8.2 L Iron TIBC % Saturation Ferritin Total Bilirubin 0.6 AST 75 H ALT 81 H Alkaline Phosphatase 120 Total Protein 5.4 L Albumin 3.0 Globulin 2.5 Albumin/Globulin Ratio 1.2 Vitamin B12 Folate Blood Type A POSITIVE Antibody Screen Negative Crossmatch See Detail BBK History Checked Patient has bt 04/09/17 04/09/17 04/09/17 05:15 07:34 08:07 WBC 7.8 RBC 3.09 L Hgb 8.1 L Hct 25.2 L MCV 81.6 MCH 26.2 MCHC 32.1 RDW 16.1 H Plt Count 137 MPV 9.5 Gran % Lymph % (Auto) [place] % (Auto) Eos % (Auto) Baso % (Auto) Gran # Lymph # [place] # Eos # Baso # Neutrophils % (Manual) Band Neutrophils % Lymphocytes % (Manual) Monocytes % (Manual) Platelet Evaluation Anisocytosis (manual) Ovalocytes [place] Cells Sodium Potassium Chloride Carbon Dioxide Anion Gap BUN Creatinine Est GFR ( Amer) Est GFR (Non-Af Amer) Random Glucose Calcium Iron < 10 L TIBC 249 L % Saturation TNP Ferritin 111.0 Total Bilirubin AST ALT Alkaline Phosphatase Total Protein Albumin Globulin Albumin/Globulin Ratio Vitamin B12 271 Folate 4.0 Blood Type Antibody Screen Crossmatch BBK History Checked 04/09/17 19:25 WBC 12.9 H D RBC 3.60 Hgb 9.9 L Hct 30.1 L MCV 83.6 MCH 27.5 MCHC 32.9 RDW 15.4 H Plt Count 133 MPV 10.9 Gran % 82.9 H Lymph % (Auto) 3.9 L [place] % (Auto) 13.0 H Eos % (Auto) 0.1 L Baso % (Auto) 0.1 Gran # 10.70 H Lymph # 0.5 L [place] # 1.7 H Eos # 0.0 Baso # 0.01 Neutrophils % (Manual) 92 H Band Neutrophils % 1 Lymphocytes % (Manual) 5 L Monocytes % (Manual) 2 Platelet Evaluation Normal Anisocytosis (manual) Slight Ovalocytes Slight [place] Cells Slight Sodium Potassium Chloride Carbon Dioxide Anion Gap BUN Creatinine Est GFR ( Amer) Est GFR (Non-Af Amer) Random Glucose Calcium Iron TIBC % Saturation Ferritin Total Bilirubin AST ALT Alkaline Phosphatase Total Protein Albumin Globulin Albumin/Globulin Ratio Vitamin B12 Folate Blood Type Antibody Screen Crossmatch BBK History Checked Assessment & Plan - Assessment and Plan (Free Text) Assessment: This is an 86 yo AA F with PMH of HTN, Carotid Stenosis, CAD on s/p cath on ASA , PVD, pre-renal insufficiency, Lung carcinoma (remission x4 yrs), and Breast Ca (on Arimidex x11 yrs, current) who presented to [facility] with complaint of 3 episodes of falls, which family are reporting as syncopal episodes, but which patient reports only as falls with unclear etiology. Her possible syncope and falls appear to be more hematologic and cardiac in nature. Her baseline Hgb as per prior charting while at [facility] was 10-11, and was 7.9 after receiving IVF on this admission; however she has had regular blood work with Dr. Koenig during the interval between [facility] admissions, will need to follow up on most recent CBCs. Also may be a metabolic component in the setting of worsening renal dysfxn vs JOSE, and an orthostatic/hypotensive component due to poor PO food and fluid intake with recent reported emesis. Does not appear to be grossly neurologic in nature; head CT notable for generalized atrophy mild non-specific scattered white-matter changes, but not for any acute pathology. Plan: 1) Hgb 7.9, baseline 10-11 on prior charting; pending tranfusion with pRBCs as per Primary 2) Encourage PO intake, IVF fluid rehydration 3) Pending R-hip ORIF as per Ortho, PT/OT with likely need for rehab post-ORIF 4) Iron panel notable for low iron, low normal B12, and low-normal MCV with elevated RDW (suggestive of multifactorial anemia vs iron-deficient), would recommend Iron and B12 supplementation Patient seen, reviewed, and discussed with attending, Dr. Smith. <Wellington Smith - Last Filed: 04/10/17 10:08> Meds - Medications Medications: Current Medications Anastrozole (Arimidex 1 Mg Tab) 1 mg PO DAILY [facility] Last Admin: 04/09/17 11:25 Dose: Not Given Carvedilol (Coreg) 25 mg PO BID [facility] Last Admin: 04/09/17 19:01 Dose: Not Given Doxazosin Mesylate (Cardura) 1 mg PO 2200 [facility] Last Admin: 04/09/17 21:29 Dose: 1 mg Hydromorphone HCl (Dilaudid) 0.5 mg SC Q4H PRN PRN Reason: Pain, severe (8-10) Last Admin: 04/10/17 04:40 Dose: 0.5 mg Hydromorphone HCl (Dilaudid) 0.5 mg SC Q4H PRN PRN Reason: Pain, moderate (4-7) Dextrose/Sodium Chloride (Dextrose 5%/0.45% Ns 1000 Ml) 1,000 mls @ 60 mls/hr IV .[id number] [facility] Last Admin: 04/09/17 19:04 Dose: 60 mls/hr Polyethylene Glycol (Miralax) 17 gm PO DAILY [facility] Polysaccharide Iron Complex (Ferrex-150) 150 mg PO DAILY [facility] Tramadol/Acetaminophen (Ultracet 37.5/325 Mg) 1 tab PO Q4H PRN PRN Reason: Pain, moderate (4-7) Results - Vital Signs Recent Vital Signs: Last Vital Signs Temp 98.2 F 04/10/17 06:00 Pulse 59 L 04/10/17 06:00 Resp 20 04/10/17 06:00 BP 129/55 L 04/10/17 06:00 Pulse Ox 100 04/10/17 06:00 - Labs Result Diagrams: 04/09/17 19:25 04/09/17 05:15 Labs: Laboratory Results - last 24 hr 04/09/17 04/09/17 04/09/17 05:15 08:07 19:25 WBC 12.9 H D RBC 3.60 Hgb 9.9 L Hct 30.1 L MCV 83.6 MCH 27.5 MCHC 32.9 RDW 15.4 H Plt Count 133 MPV 10.9 Gran % 82.9 H Lymph % (Auto) 3.9 L [place] % (Auto) 13.0 H Eos % (Auto) 0.1 L Baso % (Auto) 0.1 Gran # 10.70 H Lymph # 0.5 L [place] # 1.7 H Eos # 0.0 Baso # 0.01 Neutrophils % (Manual) 92 H Band Neutrophils % 1 Lymphocytes % (Manual) 5 L Monocytes % (Manual) 2 Platelet Evaluation Normal Anisocytosis (manual) Slight Ovalocytes Slight [place] Cells Slight Ferritin 111.0 Vitamin B12 271 Folate 4.0 Blood Type A POSITIVE Antibody Screen Negative Crossmatch See Detail BBK History Checked Patient has bt Attending/Attestation - Attestation I have personally seen and examined this patient.: Yes I have fully participated in the care of the patient.: Yes I have reviewed all pertinent clinical information: Yes
--- NOTE | 2017-04-10 00:29 | CARD ---
APPROVED REPORT EKG Measurement Heart [id number] <Conclusion> Sinus rhythm with 1st degree AV block Otherwise normal ECG
--- NOTE | 2017-04-10 01:47 | CON ---
DATE: 04/09/2017 The patient is admitted for José Romero MD. REFERRING DOCTOR: José Romero MD. REASON FOR CONSULTATION: Evaluation of a patient who presents with an elevated BUN and creatinine in the setting of a fall and a right hip and right forearm fracture. HISTORY OF PRESENT ILLNESS: The patient is an 86-year-old white female with a history of hypertension, history of renal artery stenosis, history of chronic kidney disease stage III-IV, she did have a creatinine of 2.7 back in 2014. 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 The patient was brought into the emergency room for a fall and was found to have a right hip fracture and a right forearm fracture. We were asked to evaluate the patient for elevated BUN and creatinine. Her BUN is 25 with a creatinine of 2.0. The patient had been seen by my partner, Dr. Grossman several years ago, when she presented with a creatinine of 2.7. PAST MEDICAL HISTORY: Significant for hypertension, history of renal artery stenosis, history of peripheral vascular disease, history of anemia secondary to chronic kidney disease and iron-deficiency, history of lung cancer and bladder cancer, history of nonobstructive coronary artery disease with mild valvular heart disease, MR/TR, ejection fraction is 70% with LVH. History of hyperlipidemia, history of COPD. MEDICATIONS AT HOME: Include that of Pentoxil, Norvasc, Ultracet, Crestor, Megace, Cardura, Coreg, aspirin, vitamin D, and Arimidex. ALLERGIES: NO KNOWN ALLERGIES TO MEDICATIONS. CURRENT MEDICATIONS: In the hospital include; Armidex, Cardura, Coreg, Dilaudid, and Ultracet. FAMILY HISTORY: Reviewed and is noncontributory. SOCIAL HISTORY: Past history of cigarettes smoking. Currently, no cigarettes, no alcohol. REVIEW OF SYSTEMS: Unobtainable from the patient as she is seen postsurgery, seen in the TICU. PHYSICAL EXAMINATION VITAL SIGNS: Blood pressure ranging from 142 to 164 systolic, diastolic 62 to 67, respiratory rate is 18. Pulse is 64, temperature of 98.7. HEENT: Shows her to be normocephalic, atraumatic. Conjunctivae are pale. Sclerae nonicteric. NECK: Supple. No neck vein distension. No thyromegaly. No lymphadenopathy. No bruits. CHEST: Clear to auscultation and percussion. No rales. No rhonchi. No wheezing. CARDIOVASCULAR: Shows a regular rate and rhythm with MR/TR. EXTREMITIES: Distal lower extremity pulses are 1+ bilaterally. NEUROLOGIC: Shows her to be alert, but difficult to ascertain her mental status as she is postoperative. LABORATORY DATA AND IMAGING: Echocardiogram showed ejection fraction of 70% with LVH, mitral regurgitation, tricuspid regurgitation. Head CT showed scattered nonspecific white matter changes with atrophy. Right wrist positive for fracture. Hip CT showed a right hip fracture. Chest x-ray showed COPD with a rounded density at the right lung base. Blood bank; the patient had been transfused 1 unit of packed red blood cells. Lab data; CBC; white blood cell count 7.8, hemoglobin down from 9.3 to 8.1. Platelet count is 137,000. Coags; PT 12.2 with a PTT of 24.9. Chemistries showed normal electrolytes sodium 141, potassium 4.7, slight elevation of chloride of 113 with a CO2 of 20. BUN was 25 on admission and it is 25 today. Creatinine was 2.2 on admission, it is 2.0 today. Again, the patient did have a creatinine of 2.7 back in 2014. Calcium is 8.2, magnesium 2.3, phosphorus is pending. Iron saturations are 5%. Mild elevation of her liver enzymes. Albumin is 3.7, now 3.0. B12 level is low normal at 271, folate level is 4 at the low range of normal. Urinalysis showed 2-5 white blood cells per high power field, 1-3 red blood cells per high power field with trace protein. ASSESSMENT: 1. Chronic kidney disease stage III, suspect. The patient apparently had a creatinine in the mid to upper 2 range several years ago. There are no creatinine values that are available to me in 2016 or the early part of 2017. The patient does have a history of hypertension with history of renal artery stenosis. 2. Anemia, in part secondary to chronic kidney disease, in part secondary to iron-deficiency. The patient is scheduled to receive several units of blood. The patient may receive many more blood transfusions if necessary. She may be started on oral iron therapy postoperatively. The patient may receive Aranesp on an as needed basis as her hemoglobin is less than 10. 3. Status post fall at home with a right hip fracture, right forearm fracture. The patient has just completed surgical repair of her right hip fracture. No determination yet as to whether or not the patient will have her forearm fracture surgically repaired. 4. History of breast cancer status post right mastectomy. 5. History of lung cancer status post wedge resection. 6. History of peripheral vascular disease with possible renal artery stenosis. 7. History of chronic obstructive pulmonary disease, currently stable. 8. History of hyperlipidemia on outpatient statin therapy. PLAN: 1. We will obtain a renal ultrasound to further evaluate her elevated BUN and creatinine. 2. The patient will receive a dose of Aranesp tomorrow as her hemoglobin level is below 10. This will be given if her hemoglobin remains low, and if her hemoglobin is above 10 with transfusions, the Aranesp will be held. 3. Postoperatively, can obtain a 24-hour urine for creatinine clearance and protein to get a better idea of her renal parameters. 4. Orthopedic followup postop post repair of her right hip fracture and for a more definitive evaluation and planning of her right forearm fracture. 5. Continue to monitor labs on a daily basis. 6. We will continue IV fluid hydration until p.o. intake is started. 7. Accurate I's and O's and daily labs. 8. The patient may be started on a renal diet when she starts eating. 9. We will obtain a phosphorus level, a PTH level and a vitamin D, 25-hydroxy level in light of her chronic kidney disease, stage III. Thank you for letting me partake and share in the care of your patient. Axel Okeefe MD
[2017-04-10] MEDS: HYDROmorphone 0.5 mg/0.5 ml ISec SC PRN ×2 (04:40→10:47)
--- NOTE | 2017-04-10 05:56 | OP ---
PROCEDURE DATE: 04/09/2017 PREOPERATIVE DIAGNOSIS: Intertrochanteric fracture, right proximal femur. fracture right wrist impacted dorsally displaced POSTOPERATIVE DIAGNOSIS: Intertrochanteric fracture, right proximal femur. rt distal radius fracture PROCEDURE: Open reduction and internal fixation with Biomet peritrochanteric ryan using 170 mm long peritrochanteric intermedullary nail x 11 mm wide, and we did a solid lag screw 95 mm long, and I locked distally with a cortical screw 30 mm long.closed reduction apply short arm cast DESCRIPTION OF PROCEDURE: The patient taken to OR, right hip was prepped in a sterile fashion. The wound was prepped and draped in sterile fashion. With the help of C-arm, we could see that the fracture was reduced with traction and the incision for the intermedullary ryan was just 4 cm proximal to the greater trochanter, deepened down through subcutaneous tissue, and fascia opened via the incision. Palpated the greater trochanter and then inserted the threaded-tip guidewire with x-ray control and did see that it was in good position both AP and laterally and then over-reamed the proximal fragment with 70 mm reamer. I then put in the pre-prepared peritrochanteric ryan that was 170 mm long into this opening we made in the greater trochanter and the shaft and then put the ryan in and locked it into the femoral head and neck, which already had osteoarthritis, with a lag screw that was 90 mm long and locked it proximally so that it did not rotate and slide. Then we took the traction off and locked distally with 1 lag screw to the static hole of the locking screw, 30 mm long x 5 mm wide. This secured the fracture. Bleeding controlled with electrocautery and thrombin as there was one muscle bleeder that was inadvertently lacerated. We tied the bleeder off and closed the wound with 0 Vicryl over thrombin, Gelfoam, and did a deep stitch of the fascia to help the bleeding if it did ooze and then closed the subcutaneous tissue with 2-0 Vicryl and skin with 3-0 nylon interrupted. Then 2 other holes, one for the lag screw and one for the locking screw, stab wounds were closed with deep fascia with sutures of 0 Vicryl, subcutaneous with 2-0 Vicryl, and skin with stainless steel oscar. We did a sterile dressing and sent recovery room after we did a right wrist fracture now. She had a closed right wrist fracture and we did a closed reduction and application of a short-arm cast. X-rays showed good position of the previously dorsally displaced fracture of that right wrist. We put her in a light cast. The patient was sent to recovery room with dressing on the right hip and a short-arm cast on the right wrist. We also sent her to the recovery room in good condition. Sudheer Hsu DO MTDJamal
[2017-04-10] MEDS ORDERED: Iron Sucrose 100 mg/5 ml Inj IVP ONE (08:44)
[2017-04-10] MEDS ORDERED: Darbepoetin Alfa 60 mcg/ml Inj SC ONE (10:00)
--- NOTE | 2017-04-10 10:09 | RAD ---
PROCEDURE: Fluoroscopy up to 1 hour HISTORY: O.R.I.F. RIGHT HIP COMPARISON: TECHNIQUE: Fluoroscopy was provided in the operating room. 58 seconds of fluoroscopy time was utilized. Four images were submitted FINDINGS: Study shows a compression screw and ryan in the right hip. There is anatomic alignment IMPRESSION: As above
--- NOTE | 2017-04-10 10:11 | RAD ---
PROCEDURE: Fluoroscopy up to 1 hour HISTORY: CLOSED REDUCTION OF RT. WRIST FX. UNDER FLUOROSCOPY COMPARISON: TECHNIQUE: Fluoroscopy was provided in the operating room. 1.5 seconds of fluoroscopy time was used. Images were submitted FINDINGS: There has been reduction of radial fracture. There is anatomic alignment. There is no angulation. IMPRESSION: As above
[2017-04-10] MEDS: Iron Complex Polysacch 150mg Cap PO SCH (10:42)
[2017-04-10] MEDS: POLYETHYLENE GLYCOL 3350 17 GM/Dose PACKET PO SCH (10:43)
[2017-04-10] MEDS: Dextrose 5%/0.45% NS 1,000 ML IV SCH ×2 (10:48→18:20)
--- NOTE | 2017-04-10 12:21 | PN ---
DATE: REASON FOR CONSULTATION AND FOLLOWUP: Preop evaluation and postop followup for right forearm open reduction internal fixation. SUBJECTIVE: Denies any chest pain, shortness of breath, any palpitation, but complains of pain at the operative site. OBJECTIVE: GENERAL: Lying flat on the bed. Not in apparent distress. VITAL SIGNS: Temperature afebrile, heart rate is 59, and blood pressure 129/55. HEENT: PERRLA. Extraocular muscles intact. NECK: Supple. No carotid bruit or thyromegaly. CHEST: Clear to auscultation. HEART: S1 and S2 regular. ABDOMEN: Soft. EXTREMITIES: Clubbing and cyanosis negative. LABORATORY DATA: Blood workup as follows: WBC 12.9, hemoglobin 9.9, hematocrit 30.1, and platelet count 133. Sodium 141, potassium 4.7, chloride 113, carbon dioxide 20, anion gap is 13, BUN 25, creatinine 2.0 as of yesterday. IMPRESSION: Status post fall, status post fracture of right forearm, status post open reduction internal fixation; anemia, status post RBC transfusion; history of hyperlipidemia. Last echo shows preserved ejection fraction of 65% dated 02/11/2014; history of chronic end-stage renal disease dated 02/18/2014; nonobstructive coronary artery disease; history of breast cancer, status post mastectomy and status post wedge resection of the lung for the lung cancer. RECOMMENDATIONS: Continue perioperative beta-gt, monitor H and H. Today's lab is pending. We will repeat the lab today and tomorrow. We will follow with you. On rehab, if remains stable, we will discharge to telemetry. We will repeat the blood workup today and tomorrow. Monitor renal function. We will get the lipid profile, TSH, and hemoglobin A1c as well tomorrow. Thank you, Dr. Delgado, for providing us the opportunity in taking care of Mary Curry. Talia Al MD
--- NOTE | 2017-04-10 12:51 | US ---
PROCEDURE: Ultrasound of the Kidneys HISTORY: CKD, HTN, H/O KAYLAN COMPARISON: None available. TECHNIQUE: Sonogram of the kidneys. FINDINGS: RIGHT KIDNEY: Measures: 11.4 x 5.9 x 5.9 cm. Normal in size, contour and echogenicity. No stone, solid mass lesion or hydronephrosis visualized. A mid to upper pole right renal cortical cyst 1.5 x 1.2 x 1.2 cm present LEFT KIDNEY: Measures: 8.4 x 3.2 x 3.3 cm. The left kidney appears grossly abnormal in echogenicity abnormally increased in echogenicity and a smaller in size. No stone, solid mass lesion or hydronephrosis visualized. OTHER FINDINGS: None. IMPRESSION: Abnormal appearing left kidney - asymmetrical medical renal disease affecting it is suspect. No hydronephrosis Incidental right mid- upper renal pole cortical cyst
--- NOTE | 2017-04-10 14:37 | PN ---
DATE: 04/10/2017 SUBJECTIVE: The patient is seen lying in bed. She is awake. She is alert. She is somewhat confused. She reports that she has had multiple falls at home in the last 3 months. She just finds herself on the floor. There is no premonition. No chest pain. No shortness of breath. No palpitations. The patient sustained fracture of her right hip and right wrist. She had open reduction and internal fixation of right femur. PHYSICAL EXAMINATION: GENERAL: Elderly lady lying in bed. VITAL SIGNS: Blood pressure 121/60, heart rate 60, respiratory rate 16, temperature 98.8. HEENT: Normocephalic, atraumatic. NECK: Supple, no JVD. LUNGS: Bilateral equal air entry, no rales. CARDIAC: S1 and S2. Regular rate and rhythm. No murmur, no rub. ABDOMEN: Soft, nondistended, nontender. Bowel sounds present. EXTREMITIES: No lower extremity edema. She has current dressing on the outer aspect of her left hip and thigh. INTAKE AND OUTPUT: 360/250. LABORATORY DATA: WBC 12.9, hemoglobin 9.9, hematocrit 30, platelets 133. Sodium 141, potassium 4.7, chloride 113, CO2 of 20, BUN 25, creatinine 2.0, glucose 77, calcium 8.2, iron less than 10, saturation 5, ferritin 111, AST 75, ALT 81, albumin 3.0, corrected calcium is 8.9. Urinalysis: Yellow, slightly cloudy, pH 5.5, specific gravity greater than 1.030, protein 30, ketones trace, blood trace. Urine culture no growth. Renal ultrasound: Right kidney 11.4 cm, left kidney 8.4 cm. CURRENT MEDICATIONS: Arimidex, Cardura, Coreg 25 b.i.d., D5 half-normal saline at 60, Dilaudid, iron complex, MiraLax, tramadol, cefazolin, Venofer 100 mg given this morning. ASSESSMENT: 1. Longstanding hypertension, well controlled at this time. 2. Chronic kidney disease stage III/IV. 3. Severe peripheral vascular disease. 4. Atherosclerotic disease. 5. Anemia of chronic kidney disease. 6. Recurrent syncopal episodes. 7. Right hip fracture. 8. Right wrist fracture. PLAN: 1. Continue current antihypertensives, avoid hypotension in this elderly lady. 2. IV Venofer total dose of 1000 mg. 3. Check intact PTH levels. 4. No uremic signs and symptoms. No plans for renal replacement therapy at this time. Elena Grossman MD
--- NOTE | 2017-04-10 18:11 | CP.PCM.PCO ---
Physician Communication Note - Physician Communication Note Physician Communication Note: HgB9.9/[id number] OOB/Subacute rehab planned
[2017-04-10 19:28] LABS: BASO # 0.01 K/mm3 (0.0-2.0); BASO % 0.1 % (0.0-3.0); EOS % 0.2 % (1.5-5.0); GRAN # 8.9 (1.4-6.5); GRAN % 82.4 % (50.0-68.0); HEMATOCRIT 25.1 % (36.0-48.0); LYMPH # 0.6 (1.2-3.4); LYMPH % 5.3 % (22.0-35.0); MEAN CELL VOLUME 82.3 fl (80.0-105.0); MEAN CORPUSCULAR HEMOGLOBIN 27.2 pg (25.0-35.0); MEAN CORPUSCULAR HGB CONC 33.1 g/dl (31.0-37.0); MEAN PLATELET VOLUME 11.2 fl (7.0-11.0); MONO # 1.3 (0.1-0.6); RED CELL DISTRIBUTION WIDTH 15.5 % (11.5-14.5); WHITE BLOOD COUNT 10.8 10^3/ul (4.5-11.0)
[2017-04-10 19:31] LABS: ALB/GLOB RATIO 1.1 (1.1-1.8); BILIRUBIN,TOTAL 0.9 mg/dL (0.2-1.3); CALCIUM 7.6 mg/dL (8.4-10.5); POTASSIUM 4.8 mmol/L (3.6-5.0)
--- NOTE | 2017-04-11 01:44 | PN ---
DATE: 04/10/2017 SUBJECTIVE: The patient had an ORIF of her right hip and a closed reduction and application of long arm cast for right wrist, doing well today, but she refuses lunch and refused to get up out of bed with the help of therapy, and she refused her blood work. We will follow her closely and hopefully get her up out of the bed tomorrow, and that she should hopefully eat her diet also. So, we will follow her closely and check her blood work tomorrow, and we will plan on subacute rehab when she is able to get up out of the bed without discomfort. Sudheer Hsu DO
[2017-04-11] MEDS: HYDROmorphone 0.5 mg/0.5 ml ISec SC PRN (05:25)
[2017-04-11] MEDS: Dextrose 5%/0.45% NS 1,000 ML IV SCH (06:21)
--- NOTE | 2017-04-11 07:50 | CP.PCM.PCO ---
Physician Communication Note - Physician Communication Note Physician Communication Note: HgB8.3:Rx 1 unit prbc
--- NOTE | 2017-04-11 09:17 | PN ---
DATE: 04/11/2017 SUBJECTIVE: The patient 2 days postop right hip fracture and right wrist fracture, stable, Hemoglobin is 8.3 and 25% hematocrit, and white count is lower than yesterday's 10.8. She has no undo complaints. She does have mild discomfort in the right arm. Cast is in good position and not too tight.the wound is dry of the right hip. IMPRESSION AND PLAN: We will get her up out of bed and have the medical doctor evaluate her since they want to give her blood. She is a chronic anemic patient and she may be okay with 8.3 gm will see what the attending says about this. We will continue physical therapy and plan on subacute rehab when she is stable enough to go to this facility. Sudheer Hsu DO MTDD
[2017-04-11] MEDS: Iron Complex Polysacch 150mg Cap PO SCH (10:49)
[2017-04-11] MEDS: POLYETHYLENE GLYCOL 3350 17 GM/Dose PACKET PO SCH (10:51)
[2017-04-11 13:08] LABS: BASO # 0.01 K/mm3 (0.0-2.0); BASO % 0.1 % (0.0-3.0); EOS # 0.1 (0.0-0.7); EOS % 0.7 % (1.5-5.0); GRAN # 6.15 (1.4-6.5); GRAN % 80.8 % (50.0-68.0); LYMPH # 0.7 (1.2-3.4); LYMPH % 8.5 % (22.0-35.0); MEAN CORPUSCULAR HEMOGLOBIN 27.3 pg (25.0-35.0); MEAN CORPUSCULAR HGB CONC 32.9 g/dl (31.0-37.0); MEAN PLATELET VOLUME 10.4 fl (7.0-11.0); MONO # 0.8 (0.1-0.6); MONO % 9.9 % (1.0-6.0); RED CELL DISTRIBUTION WIDTH 15.8 % (11.5-14.5); WHITE BLOOD COUNT 7.6 10^3/ul (4.5-11.0)
[2017-04-11 13:10] LABS: BILIRUBIN,TOTAL 0.8 mg/dL (0.2-1.3); CALCIUM 7.7 mg/dL (8.4-10.5); MAGNESIUM 2.3 mg/dL (1.7-2.2); PHOSPHOROUS 3.3 mg/dL (2.5-4.5); POTASSIUM 4.5 mmol/L (3.6-5.0); TOTAL PROTEIN 4.8 g/dL (5.8-8.3)
[2017-04-11 13:31] LABS: HEMATOCRIT 21.9 % (36.0-48.0)
--- NOTE | 2017-04-11 14:19 | PN ---
DATE: 04/11/2017 SUBJECTIVE: The patient is seen lying in bed. She appears to be resting comfortably. PHYSICAL EXAMINATION GENERAL: An elderly lady lying in bed. VITAL SIGNS: Blood pressure of 112/63, heart rate of 61, respiratory rate of 18, and temperature of 99.5 and T-max is 99.5. HEENT: Normocephalic and atraumatic. Positive pallor. NECK: Supple, no JVD. LUNGS: Bilateral equal air entry, no rales. CARDIAC: S1 and S2, regular rate and rhythm. No murmur and no rub. ABDOMEN: Soft, nondistended, and nontender. Bowel sounds present. EXTREMITIES: No lower extremity edema. INTAKE AND OUTPUT: 1500/1200. LABORATORY DATA: WBC of 10.8, hemoglobin of 8.3, hematocrit of 25, and platelets of 157. Sodium of 138, potassium of 4.5, chloride of 110, CO2 of 28, creatinine of 2.0, glucose of 97, and calcium of 7.7. The phosphorus of 3.3 magnesium of 2.3, AST of 66, ALT of 42, albumin of 2.4, and corrected calcium is 8.7. Urine culture no growth. The patient received 2 units of blood. CURRENT MEDICATIONS: Arimidex, Cardura, Coreg, D5 normal saline at 60 discontinued this morning, Dilaudid, Ferrex, iron sucrose, MiraLax, and tramadol. ASSESSMENT/PLAN 1. Stable chronic kidney disease stage IV/V. 2. Syncope, resulting in multiple falls. 3. Fractured right femoral neck and fractured right wrist. 4. Anemia, acute on chronic. 5. Hypertension. 6. Low grade fever. PLAN 1. Monitor H and H closely, the patient has received 2 units of blood, she is receiving Venofer. 2. Renal function is stable. 3. Hold antihypertensives. 4. Check vitamin D and intact PTH. Elena Grossman MD
--- NOTE | 2017-04-11 15:03 | PN ---
DATE: 04/11/2017 SUBJECTIVE: Denies any chest pain. Complain of too much blood is being drawn but not any chest pain. No shortness of breath. OBJECTIVE GENERAL: Lying flat on the bed. Not in apparent distress except complaining of blood being drawn. VITAL SIGNS: Temperature afebrile, heart rate is 61, and blood pressure 112/63. HEENT: PERRLA. Extraocular muscles intact. NECK: Supple. No carotid bruit or thyromegaly. CHEST: Clear to auscultation. HEART: S1 and S2 regular. ABDOMEN: Soft. EXTREMITIES: Clubbing and cyanosis negative. LABORATORY DATA: Blood workup as follows: WBC 7.6, hemoglobin 7.2, hematocrit 21.9, and platelet count 142. Chemistry shows sodium 130, potassium , carbon dioxide 20, anion gap is 13, BUN 20, creatinine . IMPRESSION: An 86-year-old female with past medical history significant hypertension admitted after a fall, status post fracture of right wrist, status post open reduction internal fixation; anemia, renal insufficiency, history of hyperlipidemia. Last echo dated 02/11/2017 shows ejection fraction of 65%; history of chronic renal insufficiency 02/18/2014; nonobstructive coronary artery disease; history of breast cancer, status post mastectomy and status post wedge resection of the lung, history of cardiac catheterization 02/18/2014 as a preop evaluation for lung that shows nonobstructive coronary artery disease. Repeat echo dated 04/09/2017 shows ejection fracture 65-70%, [id number] tricuspid regurgitation, right ventricular systolic pressure 90, no pericardial effusion, dated 04/09/2017. RECOMMENDATIONS: Continue rehab. Give 2 units of packed RBC. Supplement iron. Continue Coreg. We will follow with you. Telemetry has already been discontinued. Thank you, Dr. Delgado, for providing us the opportunity in taking care of Patricio Hernandez. Talia Al MD
--- NOTE | 2017-04-11 16:56 | US ---
PROCEDURE: Bilateral carotid artery duplex ultrasound HISTORY: Carotid stenosis syncope. PHYSICIAN(S): Naeem Fong MD. TECHNIQUE: Duplex sonography and color-flow Doppler were used to evaluate the carotid bifurcations and limited segments of the vertebral arteries bilaterally. FINDINGS: There is mild to moderate smooth heterogeneous plaque noted at the carotid bifurcations bilaterally. The peak systolic velocity in the proximal right internal carotid artery is 79 cm/sec. This corresponds to a 20 to 39% proximal right ICA stenosis. Normal systolic velocities are noted in the proximal right external carotid artery. There is antegrade flow in the right vertebral artery. The peak systolic velocity in the proximal left internal carotid artery is 63 cm/sec. This corresponds to a 20 to 39% proximal left ICA stenosis. Normal systolic velocities are noted in the proximal left external carotid artery. There is antegrade flow in the left vertebral artery. IMPRESSION: 1. Bilateral 20-39% proximal ICA stenoses. 2. Antegrade flow in both vertebral arteries.
[2017-04-12] MEDS: Dextrose 5%/0.45% NS 1,000 ML IV SCH (01:15)
[2017-04-12 07:21] LABS: BILIRUBIN,TOTAL 1.4 mg/dL (0.2-1.3); CALCIUM 7.5 mg/dL (8.4-10.5); POTASSIUM 4.3 mmol/L (3.6-5.0); TOTAL PROTEIN 4.8 g/dL (5.8-8.3)
[2017-04-12] MEDS: Iron Complex Polysacch 150mg Cap PO SCH (09:51)
[2017-04-12] MEDS: POLYETHYLENE GLYCOL 3350 17 GM/Dose PACKET PO SCH (09:52)
[2017-04-12 11:20] LABS: HEMATOCRIT 28.5 % (36.0-48.0); MEAN CELL VOLUME 83.3 fl (80.0-105.0); MEAN CORPUSCULAR HEMOGLOBIN 28.4 pg (25.0-35.0); MEAN PLATELET VOLUME 10.4 fl (7.0-11.0); RED CELL DISTRIBUTION WIDTH 15.6 % (11.5-14.5)
[2017-04-12 11:32] LABS: BILIRUBIN,TOTAL 1.5 mg/dL (0.2-1.3); CALCIUM 7.6 mg/dL (8.4-10.5); POTASSIUM 4.3 mmol/L (3.6-5.0); TOTAL PROTEIN 4.8 g/dL (5.8-8.3)
--- NOTE | 2017-04-12 11:51 | CP.PCM.PCO ---
Physician Communication Note - Physician Communication Note Physician Communication Note: HgB7.2=now [id number]/Iron still pending/No BM( 1Week)
--- NOTE | 2017-04-12 14:37 | PN ---
DATE: 04/12/2017 REASON FOR CONSULTATION AND FOLLOWUP: Preop evaluation, risk stratification for right forearm fracture, is status post open reduction internal fixation. SUBJECTIVE: Denies any chest pain or shortness of breath. Lying sleeping on the bed flat. OBJECTIVE: GENERAL: Not in apparent distress. Lying flat on the bed. No significant complaints. PHYSICAL EXAMINATION: VITAL SIGNS: Temperature afebrile, heart rate 61, and blood pressure 142/63. HEENT: PERRLA. Extraocular muscles intact. NECK: Supple. No carotid bruit or thyromegaly. CHEST: Clear to auscultation. HEART: S1 and S2 regular. ABDOMEN: Soft. EXTREMITIES: Clubbing and cyanosis negative. LABORATORY DATA: Blood workup as follows: WBC 7.6, hemoglobin 7.2, hematocrit 21.9, and platelet count 142. Chemistry shows sodium 130, potassium 4.3, chloride 115, carbon dioxide 18, anion gap is 10, BUN 29, creatinine 1.7. Total protein 4.8, albumin 2.4, albumin globulin ratio 1. IMPRESSION: Protein-calorie malnutrition, does not present on admission; anemia, status post fall, status post fracture, status post open reduction internal fixation, status post packed red blood cell transfusion, history of chronic renal insufficiency. Last echo dated 02/11/2017 shows ejection fraction of 65%; history of chronic renal insufficiency since 02/18/2014, history of cardiac catheterization on 02/18/2014, preop evaluation of lung resection for lung cancer; nonobstructive coronary artery disease. A repeat echo on 04/09/2017 with ejection fraction 65% to 70% [id number] tricuspid regurgitation, right ventricular systolic pressure is 50 mmHg, mild tricuspid regurgitation reported and mild pulmonary hypertension reported. RECOMMENDATIONS: Followup CBC today. Yesterday, the patient had two units of packed RBC. Continue rehab. Supplement iron. Continue beta-gt. History of lung CA, status post wedge resection two years ago. At that time, cardiac catheterization revealed a nonobstructive coronary artery disease. Follow up CBC. The patient has a bilateral carotid duplex that shows 20% to 39% proximal bilateral stenosis. hemodynamically not significant. Thank you, Dr. Romero for providing me the opportunity in taking care of Mary Curry Talia Al MD [facility] # [id number]
--- NOTE | 2017-04-12 17:12 | PN ---
SUBJECTIVE: The patient is seen lying in bed. She is awake. She is alert. She is comfortable. PHYSICAL EXAMINATION: GENERAL: Elderly lady lying in bed. VITAL SIGNS: Blood pressure 140/60, heart rate 60, respiratory rate 18, temperature 98.7. HEENT: Normocephalic, atraumatic. NECK: Supple, no JVD. LUNGS: Bilateral equal air entry, no rales. CARDIAC: S1 and S2. Regular rate and rhythm. No murmur, no rub. ABDOMEN: Soft, nondistended, nontender. Bowel sounds present. EXTREMITIES: No lower extremity edema. INTAKE AND OUTPUT: 1130/100. LABORATORY DATA: WBC 8, hemoglobin 9.7, hematocrit 28.5, platelets 161. Sodium 138, potassium 4.3, chloride 114, CO2 17, BUN 29, creatinine 1.7, glucose 137, calcium 7.6, albumin 2.4, corrected calcium is 8.6, PTH 111, vitamin D 35. The patient is status post 3 units of blood transfusion. Carotid artery Doppler, bilateral 29% to 39% proximal ICA stenosis MEDICATIONS: List reviewed. ASSESSMENT AND PLAN: 1. Acute kidney injury superimposed on chronic kidney disease stage IV. 2. Status post syncope. 3. Right femoral neck fracture, status post hip replacement, postop day #3. 4. Severe anemia acute on chronic. 5. Long-standing hypertension. 6. Atherosclerotic disease. 7. Hypocalcemia. PLAN: 1. Agree with discontinuation of IV fluids. 2. Monitor H and H. 3. The patient is status post 3 units of blood confusion and Venofer, adequate iron supplementation. 4. Continue current antihypertensives. 5. No uremic signs or symptoms, no indication for renal replacement therapy. 6. Replace calcium. Elena Grossman MD
[2017-04-12] MEDS: HYDROmorphone 0.5 mg/0.5 ml ISec SC PRN (20:56)
[2017-04-13 06:40] LABS: BILIRUBIN,TOTAL 1.2 mg/dL (0.2-1.3); CALCIUM 7.7 mg/dL (8.4-10.5); TOTAL PROTEIN 4.8 g/dL (5.8-8.3)
[2017-04-13 06:53] LABS: BASO # 0.01 K/mm3 (0.0-2.0); BASO % 0.1 % (0.0-3.0); EOS # 0.2 (0.0-0.7); EOS % 2.4 % (1.5-5.0); GRAN # 6.11 (1.4-6.5); GRAN % 78.6 % (50.0-68.0); HEMATOCRIT 29.2 % (36.0-48.0); LYMPH # 0.8 (1.2-3.4); LYMPH % 10.2 % (22.0-35.0); MEAN CELL VOLUME 83.4 fl (80.0-105.0); MEAN CORPUSCULAR HGB CONC 33.6 g/dl (31.0-37.0); MEAN PLATELET VOLUME 10.2 fl (7.0-11.0); MONO # 0.7 (0.1-0.6); MONO % 8.7 % (1.0-6.0); RED CELL DISTRIBUTION WIDTH 15.7 % (11.5-14.5); WHITE BLOOD COUNT 7.8 10^3/ul (4.5-11.0)
[2017-04-13 08:03] VITALS: RESP 20; TEMP 98.4; O2SAT 100
[2017-04-13 09:13] LABS: IRON 29 ug/dL (45-180)
[2017-04-13] MEDS: POLYETHYLENE GLYCOL 3350 17 GM/Dose PACKET PO SCH (09:18)
[2017-04-13] MEDS: Iron Complex Polysacch 150mg Cap PO SCH (09:18)
[2017-04-13] MEDS: Dextrose 5%/0.45% NS 1,000 ML IV SCH (09:19)
--- NOTE | 2017-04-13 12:25 | PN ---
DATE: 04/13/2017 SUBJECTIVE The patient is seen sitting in chair. She is awake. She is alert. She is comfortable. She reports constipation for the last one week. PHYSICAL EXAMINATION GENERAL: Elderly lady sitting in chair. VITAL SIGNS: 162/72, heart rate 62, respiratory rate 20, temperature 98.4. HEENT: Normocephalic and atraumatic. NECK: Supple. No JVD. LUNGS: Bilateral equal air entry. No rales. CARDIAC: S1 and S2. Regular rate and rhythm. No murmur. No rub. ABDOMEN: Soft, nondistended, and nontender. Bowel sounds present. EXTREMITIES: No lower extremity edema. INTAKE AND OUTPUT: 960/not charted. LABORATORY DATA WBC 7.8, hemoglobin 9.8, hematocrit 29, platelets 182. Sodium 140, potassium 4.0, chloride 114, CO2 19, BUN 28, creatinine 1.5, glucose 82, calcium 7.7, albumin 2.4, corrected calcium is 8.7, iron saturation 15, iodine 29. Ferritin 111. Status post 3 units of blood transfusion CURRENT MEDICATIONS Cardura 1 mg daily, Coreg 25 b.i.d., D5 half-normal saline at 60, Dilaudid, oral iron, Venofer, MiraLax, Senokot, and Ultracet ASSESSMENT 1. Suboptimally controlled hypertension. 2. Resolving acute kidney injury. 3. Underlying chronic disease stage IV. 4. Status post syncope, status post fall, status post right femoral neck fracture. 5. Status post right hip replacement, postop day #4. 6. Severe anemia. 7. Atherosclerotic disease. PLAN 1. Restart amlodipine, but at 5 mg per day. 2. Discontinue IV fluids. 3. No indication for further iron infusion, the patient received 3 units of blood transfusion already 4. Physical therapy. 5. Discharge planning. Elena Grossman MD
[2017-04-13 12:37] VITALS: BP 152/78; PULSE 61
== END 2017-04-13 15:34 | DRG 481 ==
LOC: ED 14:58 → ERH 17:40 → 2RSO 20:38 → 3RNO 04-11 13:37
PROVIDERS: ADMIT Surgery; ATTEND Surgery
PROC: 0PSHXZZ Reposition Right Radius, External Approach (ICD-10-PCS; 2017-04-09)
PROC: 0QS606Z Reposition Right Upper Femur with Intramedullary Internal Fixation Device, Open Approach (ICD-10-PCS; principal; 2017-04-09 14:00)
PROC: 30233N1 Transfusion of Nonautologous Red Blood Cells into Peripheral Vein, Percutaneous Approach (ICD-10-PCS; 2017-04-09 14:00)
DX: S72.141A Displaced intertrochanteric fracture of right femur, initial encounter for closed fracture (principal); N17.9 Acute kidney failure, unspecified; N18.4 Chronic kidney disease, stage 4 (severe); E46 Unspecified protein-calorie malnutrition; I27.2 Other secondary pulmonary hypertension; E83.51 Hypocalcemia; I08.3 Combined rheumatic disorders of mitral, aortic and tricuspid valves; S52.501A Unspecified fracture of the lower end of right radius, initial encounter for closed fracture; Z68.1 Body mass index [BMI] 19.9 or less, adult; S52.611A Displaced fracture of right ulna styloid process, initial encounter for closed fracture; I12.9 Hypertensive chronic kidney disease with stage 1 through stage 4 chronic kidney disease, or unspecified chronic kidney disease; I70.1 Atherosclerosis of renal artery; D63.1 Anemia in chronic kidney disease; E78.5 Hyperlipidemia, unspecified; M81.0 Age-related osteoporosis without current pathological fracture; Z85.118 Personal history of other malignant neoplasm of bronchus and lung; W01.0XXA Fall on same level from slipping, tripping and stumbling without subsequent striking against object, initial encounter; Z85.51 Personal history of malignant neoplasm of bladder; Z85.3 Personal history of malignant neoplasm of breast; I25.10 Atherosclerotic heart disease of native coronary artery without angina pectoris; I73.9 Peripheral vascular disease, unspecified; J44.9 Chronic obstructive pulmonary disease, unspecified; Z87.891 Personal history of nicotine dependence; Z90.11 Acquired absence of right breast and nipple; Z79.899 Other long term (current) drug therapy; Z79.82 Long term (current) use of aspirin; Z79.811 Long term (current) use of aromatase inhibitors; R29.6 Repeated falls; M16.11 Unilateral primary osteoarthritis, right hip; Z92.21 Personal history of antineoplastic chemotherapy; Z92.3 Personal history of irradiation; R00.1 Bradycardia, unspecified; T44.7X5A Adverse effect of beta-adrenoreceptor antagonists, initial encounter; K59.09 Other constipation

== ENCOUNTER 2018-06-21 14:14 | Inpatient (IN) | payer MEDICARE, BC ==
[2018-06-21 14:19] VITALS: BMI 16.9
[2018-06-21 15:58] LABS: BASO # 0.01 K/mm3 (0.0-2.0); BASO % 0.1 % (0.0-3.0); EOS % 0.1 % (1.5-5.0); GRAN % 90.2 % (50.0-68.0); HEMOGLOBIN 13.1 g/dL (12.0-16.0); LYMPH # 0.3 (1.2-3.4); LYMPH % 4.3 % (22.0-35.0); MEAN CELL VOLUME 87.6 fl (80.0-105.0); MEAN CORPUSCULAR HEMOGLOBIN 29.4 pg (25.0-35.0); MEAN CORPUSCULAR HGB CONC 33.6 g/dl (31.0-37.0); MEAN PLATELET VOLUME 10.2 fl (7.0-11.0); MONO # 0.4 (0.1-0.6); MONO % 5.3 % (1.0-6.0); PLATELET COUNT 145 10^3/uL (120.0-450.0); RBC 4.45 10^6/uL (3.5-6.1); RED CELL DISTRIBUTION WIDTH 14.9 % (11.5-14.5)
[2018-06-21 16:08] LABS: ALB/GLOB RATIO 1.2 (1.1-1.8); ALBUMIN 4.1 g/dL (3.0-4.8); CALCIUM 9.4 mg/dL (8.4-10.5)
[2018-06-21 16:17] LABS: EOSINOPHIL 1 % (0.0-3.0); LYMPHOCYTE 4 % (22.0-35.0); MONOCYTE 2 % (1.0-6.0); NEUTROPHIL 93 % (50.0-70.0)
[2018-06-21 16:19] LABS: PLATELET ESTIMATE NORMAL (NORMAL); TROPONIN I 0.04 ng/mL
--- NOTE | 2018-06-21 17:39 | CT ---
Date of service: 06/21/2018 PROCEDURE: CT HEAD WITHOUT CONTRAST. HISTORY: fall, HTN COMPARISON: Noncontrast head CT performed 04/08/17 TECHNIQUE: Axial computed tomography images were obtained through the head/brain without intravenous contrast. Radiation dose: Total exam DLP = 908.31 mGy-cm. This CT exam was performed using one or more of the following dose reduction techniques: Automated exposure control, adjustment of the mA and/or kV according to patient size, and/or use of iterative reconstruction technique. FINDINGS: HEMORRHAGE: No intracranial hemorrhage. BRAIN: No mass effect or edema. Bilateral basal ganglia calcifications. Intracranial atherosclerotic calcifications. Scattered periventricular and subcortical white matter hypodensities, which are nonspecific, but often seen with chronic microvascular ischemic disease. Please note that MRI with diffusion imaging is more sensitive in the detection of acute ischemic event. VENTRICLES: No hydrocephalus. CALVARIUM: Unremarkable. PARANASAL SINUSES: Unremarkable as visualized. No significant inflammatory changes. MASTOID AIR CELLS: Unremarkable as visualized. No inflammatory changes. OTHER FINDINGS: None. IMPRESSION: Nonspecific white matter changes. Generalized atrophy.
--- NOTE | 2018-06-21 17:44 | RAD ---
PROCEDURE: Right Wrist Radiographs. HISTORY: trauma r/o fall COMPARISON: Right wrist radiographs performed 04/08/17 FINDINGS: Diffuse osseous demineralization limits evaluation for acute fracture lines. Severe degenerative changes. Carpal crowding. Narrowing of the radiocarpal joint space. Ossified density adjacent to the distal ulna appears consistent with radial ulnar fracture deformity, likely chronic. Deformity of the distal radius appears consistent with remote fracture however suspect intra-articular lucent line consistent with acute intra-articular fracture. Soft tissue swelling. No evidence of retained radiopaque foreign body. IMPRESSION: Soft tissue swelling. Evidence of remote distal radial and ulna styloid fracture deformities. However vertical lucent line appears to extend into the intra-articular surface of the distal radius which may reflect acute nondisplaced distal radial fracture. Osseous demineralization limits evaluation. Correlate clinically and recommend MRI for further evaluation if indicated. Extensive degenerative changes.
--- NOTE | 2018-06-21 18:01 | ED PDOC ---
Arrival/HPI - General Chief Complaint: Trauma - History of Present Illness Narrative History of Present Illness (Text): 88 year old female with past medical history of HTN, CAD, syncope, and right hip fracture (s/p surgery 2017) presents to the emergency department via EMS c/o ri ght hip and right wrist pain s/p unwitnessed fall [employer]. Patient lives with son. Denies mechanical mechanism of fall, states she just "ended up on the floor", possible syncope. Unable to bear weight on right leg. This type of fall happened once before, last year, when she broke her right hip and wrist, requiring hip surgery with ryan placement by Dr. Hsu. Pt has not seen her PMD, Dr. Romero, in over a year and is not taking any medications. Denies head strike or LOC, numbness, paresthesias, headache, vision changes, SOB, cough, neck pain, chest pain, abdominal pain, weakness. Past Medical History - Provider Review Nursing Documentation Reviewed: Yes - Infectious Disease Hx of Infectious Diseases: None - Cardiac Hx Hypertension: Yes (pt has not taken any medications for the past year.) - Pulmonary Hx Lung Cancer: Yes - Neurological Hx Paralysis: No - Hematological/Oncological Hx Blood Transfusions: Yes Hx Blood Transfusion Reaction: No - Musculoskeletal/Rheumatological Hx Arthritis: Yes - Psychiatric Hx Psychophysiologic Disorder: No Hx Anxiety: No Hx Bipolar Disorder: No Hx Depression: No Hx Emotional Abuse: No Hx Hallucinations: No Hx Panic Disorder: No Hx Post Traumatic Stress Disorder: No Hx Psychosis: No Hx Physical Abuse: No Hx Schizophrenia: No Hx Sexual Abuse: No Hx Substance Use: No - Surgical History Hx Coronary Stent: Yes Hx Mastectomy: Yes - Anesthesia Hx Anesthesia Reactions: No Hx Malignant Hyperthermia: No - Suicidal Assessment Feels Threatened In Home Enviroment: No Family/Social History Family/Social History: No Known Family HX Smoking Status: Former Smoker Hx Alcohol Use: No Hx Substance Use: No Allergies/Home Meds Allergies/Adverse Reactions: Allergies No Known Allergies Allergy (Verified 11/23/13 13:45) Home Medications: Home Meds Medication Instructions Recorded Confirmed No Known Home Med 06/21/18 06/21/18 Review of Systems - Physician Review All systems were reviewed & negative as marked: Yes - Review of Systems Constitutional: Normal. absent: Fatigue, Fevers Eyes: Normal. absent: Vision Changes ENT: Normal Respiratory: Normal. absent: SOB, Cough Cardiovascular: Normal. absent: Chest Pain, Palpitations Gastrointestinal: Normal. absent: Abdominal Pain, Nausea, Vomiting Genitourinary Female: Normal. absent: Dysuria, Frequency Musculoskeletal: Normal. absent: Back Pain, Neck Pain Skin: Normal Neurological: Normal. absent: Headache, Dizziness Endocrine: Normal Psychiatric: Normal Physical Exam Vital Signs Reviewed: Yes Vital Signs Temp Pulse Resp BP Pulse Ox 06/21/18 17:36 79 18 195/97 H 98 06/21/18 14:15 98 F 88 18 212/122 H 99 Temperature: Afebrile Blood Pressure: Hypertensive Pulse: Regular Respiratory Rate: Normal Appearance: Positive for: Well-Appearing, Non-Toxic, Comfortable Pain Distress: None Mental Status: Positive for: Alert and Oriented X 3 - Systems Exam Head: Present: Atraumatic, Normocephalic Pupils: Present: PERRL Extroacular Muscles: Present: EOMI Conjunctiva: Present: Normal Mouth: Present: Moist Mucous Membranes Neck: Present: Normal Range of Motion. No: MIDLINE TENDERNESS Respiratory/Chest: Present: Clear to Auscultation, Good Air Exchange. No: Respiratory Distress, Accessory Muscle Use Cardiovascular: Present: Regular Rate and Rhythm, Normal S1, S2. No: Murmurs Abdomen: Present: Normal Bowel Sounds. No: Tenderness, Distention, Peritoneal Signs, Rebound, Guarding Back: Present: Normal Inspection. No: Midline Tenderness, Paraspinal Tenderness Upper Extremity: Present: Normal ROM, NORMAL PULSES, Tenderness (right medial and lateral wrist; otherwise normal), Neurovascularly Intact, Capillary Refill < 2s, Deformity (right wrist, possibly chronic; pt wears brace at baseline). No: Cyanosis, Edema, Swelling Lower Extremity: Present: Normal Inspection, NORMAL PULSES, Tenderness (lateral right hip), Neurovascularly Intact, Capillary Refill < 2 s. No: Edema, CALF TENDERNESS, Normal ROM (decreased secondary to pain; unable to bear weight right leg), Swelling Neurological: Present: GCS=15, CN II-XII Intact, Speech Normal, Motor Func Grossly Intact, Normal Sensory Function, Normal Cerebellar Funct, Memory Normal. No: Gait Normal (unable to bear weight) Skin: Present: Warm, Dry, Normal Color. No: Rashes Psychiatric: Present: Alert, Oriented x 3, Normal Insight, Normal Concentration, Normal Affect, Normal Mood Medical Decision Making ED Course and Treatment: 06/21/18 17:57 Initial Plan: * EKG * CXR * Head CT * Right Hip CT * Right Wrist XR * CBC, CMP * Troponin EKG: rate 80; NSR with 1st degree AV block; normal intervals; no ST elevations; T wave inversions in lateral leads CXR: no active disease CBC: wnl CMP: Creat 1.5, otherwise wnl Troponin: 0.[address]: FINDINGS: HEMORRHAGE: No intracranial hemorrhage. BRAIN: No mass effect or edema. Bilateral basal ganglia calcifications. Intracranial atherosclerotic calcifications. Scattered periventricular and subcortical white matter hypodensities, which are nonspecific, but often seen with chronic microvascular ischemic disease. Please note that MRI with diffusion imaging is more sensitive in the detection of acute ischemic event. VENTRICLES: No hydrocephalus. CALVARIUM: Unremarkable. PARANASAL SINUSES: Unremarkable as visualized. No significant inflammatory changes. MASTOID AIR CELLS: Unremarkable as visualized. No inflammatory changes. OTHER FINDINGS: None. IMPRESSION: Nonspecific white matter changes. Generalized atrophy. Right Hip CT: FINDINGS: BONES: S/p ORIF involving right proximal femur. No acute fracture. JOINTS: Severe DJD at the right hip joint. SOFT TISSUES: The soft tissues are unremarkable. MISCELLANEOUS: Ossific fragment is noted superior to greater trochanter related to old trauma. IMPRESSION: 1. S/p ORIF involving right proximal femur. 2. Ossific fragment is noted superior to greater trochanter related to old trauma. 3. No acute fracture. 4. Severe DJD at the right hip joint. Dictator: Brenton Hood MD Wrist Xray: FINDINGS: Diffuse osseous demineralization limits evaluation for acute fracture lines. Severe degenerative changes. Carpal crowding. Narrowing of the radiocarpal joint space. Ossified density adjacent to the distal ulna appears consistent with radial ulnar fracture deformity, likely chronic. Deformity of the distal radius appears consistent with remote fracture however suspect intra-articular lucent line consistent with acute intra-articular fracture. Soft tissue swelling. No evidence of retained radiopaque foreign body. IMPRESSION: Soft tissue swelling. Evidence of remote distal radial and ulna styloid fracture deformities. However vertical lucent line appears to extend into the intra-articular surface of the distal radius which may reflect acute nondisplaced distal radial fracture. Osseous demineralization limits evaluation. Correlate clinically and recommend MRI for further evaluation if indicated. Extensive degenerative changes. 19:[address] Tom, who accepted patient to her service for inpatient admission to telemetry floor with diagnosis of renal failure, syncope, and p ossible right wrist fracture. Asks for Nitro paste 1inch to chest every 4 hours as needed for SBP>160 or DBP >100, renal ultrasound, heart healthy diet, and consult to Dr. Hsu. Will place orders as directed. Impression: Syncope Renal Failure Right Hip Pain Right Wrist Fracture - Lab Interpretations Lab Results: 06/21/18 15:48 06/21/18 15:48 Lab Results 06/21/18 15:48: Sodium 144, Potassium 4.7, Chloride 109 H, Carbon Dioxide 24, Anion Gap 16, BUN 18, Creatinine 1.5 H, Est GFR ( Amer) 40, Est GFR (Non- Af Amer) 33, Random Glucose 119 H, Calcium 9.4, Total Bilirubin 1.2, AST 42 H D, ALT 37, Alkaline Phosphatase 118, Troponin I 0.04 D, Total Protein 7.5, Albumin 4.1, Globulin 3.4, Albumin/Globulin Ratio 1.2 06/21/18 15:48: WBC 8.0, RBC 4.45, Hgb 13.1 D, Hct 39.0, MCV 87.6 D, MCH 29.4, MCHC 33.6, RDW 14.9 H, Plt Count 145, MPV 10.2, Gran % 90.2 H, Lymph % (Auto) 4.3 L, [place] % (Auto) 5.3, Eos % (Auto) 0.1 L, Baso % (Auto) 0.1, Gran # 7.20 H, Lymph # (Auto) 0.3 L, [place] # (Auto) 0.4, Eos # (Auto) 0.0, Baso # (Auto) 0.01, Neutrophils % (Manual) 93 H, Lymphocytes % (Manual) 4 L, Monocytes % (Manual) 2, Eosinophils % (Manual) 1, Platelet Evaluation Normal - RAD Interpretation Radiology Orders: 06/21/18 15:20 WRIST, RIGHT 3 VIEWS [RAD] Stat 06/21/18 15:21 HEAD W/O CONTRAST [CT] Stat 06/21/18 15:24 HIP WITHOUT CONTRAST RIGHT [CT] Stat - Medication Orders Current Medication Orders: Discontinued Medications Acetaminophen (Tylenol 325mg Tab) 650 mg PO STAT STA Stop: 06/21/18 16:20 Last Admin: 06/21/18 17:43 Dose: 650 mg Hydrochlorothiazide (Hydrodiuril) 25 mg PO STAT STA Stop: 06/21/18 15:28 Last Admin: 06/21/18 17:43 Dose: 25 mg Disposition/Present on Arrival - Present on Arrival Any Indicators Present on Arrival: No History of DVT/PE: No History of Uncontrolled Diabetes: No Urinary Catheter: No History of Decub. Ulcer: No History Surgical Site Infection Following: None - Disposition Have Diagnosis and Disposition been Completed?: Yes Diagnosis: Fall, Syncope, Wrist pain, Hip pain, Elevated serum creatinine Disposition: HOSPITALIZED Disposition Time: 19:00 Patient Plan: Admission Patient Problems: Current Active Problems Problem Status Onset Elevated serum creatinine Acute Fall Acute Hip pain Acute Syncope Acute Wrist pain Acute Condition: STABLE
[2018-06-21] MEDS: Nitroglycerin 2% Ointment Foilpak UD TOP SCH ×2 (19:59→20:50)
[2018-06-21 20:00] LABS: PH,URINE 6.5 (4.7-8.0); URINE BILIRUBIN NEGATIVE (NEGATIVE); URINE BLOOD MODERATE (NEGATIVE); URINE GLUCOSE (UA) NEGATIVE (NEGATIVE); URINE LEUKOCYTE ESTERASE NEGATIVE Leu/uL (NEGATIVE); URINE PROTEIN 100 mg/dL (<30 mg/dL); URINE UROBILINOGEN 0.2 E.U./dL (<1 E.U./dL)
[2018-06-21 20:01] LABS: URINE APPEARANCE CLEAR (CLEAR); URINE COLOR LIGHT YELLOW (YELLOW)
[2018-06-21 20:07] LABS: URINE BACTERIA TRACE (NEG); URINE WBC NEGATIVE /hpf (0-6)
[2018-06-22] MEDS: Nitroglycerin 2% Ointment Foilpak UD TOP SCH ×7 (03:30→23:32)
--- NOTE | 2018-06-22 09:12 | CARD ---
APPROVED REPORT Date of service: 06/21/2018 EKG Measurement Heart [id number] <Conclusion> Sinus rhythm with 1st degree AV block T wave abnormality, consider lateral ischemia Abnormal ECG
--- NOTE | 2018-06-22 11:28 | CT ---
Indication: Fall, pain Noncontrast CT of the right Comparison: CT of the right hip without contrast performed 04/08/17 Technique: Noncontrast axial images of the left/right hip. Sagittal coronal reformatted images were generated and reviewed. This CT exam was performed using 1 or more of the falling dose reduction techniques: Automated exposure control, adjustment of the MAA and/or kV according to patient size, and/or use of iterative reconstruction technique. Total exam DLP: 225.49 Findings: Right hip arthroplasty. Osseous demineralization limits evaluation for acute fracture lines. Subtle irregularity about the right superior aspect pubic symphysis. Ossific fragment superior to the greater trochanter consistent with remote trauma. Severe degenerative joint disease involving the right hip with joint space narrowing evident. No acute displaced fracture appreciated. Limited visualization of the intra-abdominal/pelvic contents reveals cholelithiasis. Atherosclerotic calcifications of the aorta. Nonobstructive bowel gas pattern. Impression: Right hip arthroplasty. Subtle irregularity involving the right superior aspect of the pubic symphysis of unclear significance. Correlate clinically. MRI may be considered for further evaluation if indicated. The remainder the visualized osseous structures appear intact without acute displaced fracture. Cholelithiasis. Preliminary impression was provided by [employer].
--- NOTE | 2018-06-22 13:18 | RAD ---
Date of service: 06/22/2018 PROCEDURE: Right hip with pelvis radiographs HISTORY: post op arthritis rt hip COMPARISON: Hip CT without contrast performed 06/21/18 FINDINGS: Postsurgical changes of the right hip with partially imaged metallic ryan and screw fixation. Osseous demineralization. Ossific fragment superior to the greater trochanter consistent with remote trauma. Severe degenerative changes bilateral hip joints. Degenerative changes of the included portions lower lumbar spine. IMPRESSION: Postsurgical changes right hip with partially imaged metallic ryan and screw fixation. Additional findings as above.
[2018-06-22 13:39] LABS: IRON 25 ug/dL (45-180)
[2018-06-22 13:48] LABS: % IRON SATURATION 9 % (20-55); TOTAL IRON BINDING CAPACITY 281 ug/dL (265-497)
--- NOTE | 2018-06-22 13:52 | US ---
Date of service: 06/22/2018 PROCEDURE: Ultrasound of the Kidneys HISTORY: elevated creatinine COMPARISON: Renal ultrasound performed 04/10/17 TECHNIQUE: Sonogram of the kidneys. FINDINGS: RIGHT KIDNEY: Measures: 9.7 x 5.7 x 4.3 cm. Echogenic renal parenchyma. No obstructing calculus or hydronephrosis identified. 1.4 cm and 0.8 cm probable cysts. LEFT KIDNEY: Measures: 8.5 x 3.3 x 4.1 cm. Echogenic renal parenchyma. No obstructing calculus, hydronephrosis, or renal cyst identified. OTHER FINDINGS: None. IMPRESSION: Echogenic renal parenchyma may be seen in setting of medical renal disease. Probable small right renal cysts.
[2018-06-22 17:18] LABS: FOLATE 17.1 ng/mL
[2018-06-23] MEDS: Nitroglycerin 2% Ointment Foilpak UD TOP SCH ×5 (03:45→23:42)
[2018-06-23 06:17] LABS: HEMOGLOBIN 11.8 g/dL (12.0-16.0); MEAN CELL VOLUME 86.9 fl (80.0-105.0); MEAN CORPUSCULAR HEMOGLOBIN 28.7 pg (25.0-35.0); MEAN CORPUSCULAR HGB CONC 33.1 g/dl (31.0-37.0); MEAN PLATELET VOLUME 10.4 fl (7.0-11.0); RBC 4.11 10^6/uL (3.5-6.1); RED CELL DISTRIBUTION WIDTH 15.5 % (11.5-14.5)
[2018-06-23 07:19] LABS: CALCIUM 8.8 mg/dL (8.4-10.5)
--- NOTE | 2018-06-23 07:39 | CON ---
DATE: 06/22/2018 LOCATION: Room 262, bed 2. HISTORY OF PRESENT ILLNESS: Requested by Dr. Tom because of right hip pain and back pain. The patient has a history of having a right hip fracture on 04/19/2017 with intertroch fracture, and the fracture healed well and has osteoarthritis that she had preexisting to that fracture, and I told at that time that we would fix the hip with pin and ryan. She is now in trouble with osteoarthritis of the right hip, mild. She can ambulate at home without assistance, but the pain of the hip is from the arthritis, not the fracture which has healed, that was an intertrochanteric fracture, healed well. The pin is in good position so is the fracture. So the osteoarthritis of the right hip could be treated conservatively with limited ambulation or surgery. She elects not to have a total hip replacement and is satisfied living in her apartment on her own and can ambulate well around the apartment, anything else she will need a walker. The back pain is from the osteoarthritis. She has also ipsilateral right wrist fracture which also healed well, but she wears the splint for some support to help her to do heavier chores. FINAL DIAGNOSIS: Healed right hip fracture with preexisting osteoarthritis of the right hip mild and a healed right distal radius fracture. PLAN: I will send her for physical therapy and increase her strength, so she can ambulate even better. No surgery is being planned. Sudheer Hsu DO
--- NOTE | 2018-06-23 08:58 | HP ---
DATE OF EXAM: 06/22/2018 HISTORY OF PRESENT ILLNESS: This 88-year-old female was examined at her bedside on the cardiac unit of the [facility] on the morning of Saturday, June 22, 2018. Present for this interview was her niece at the bedside. The patient presented to [facility] ER late last evening after falling at home and sustaining pain and discomfort to her right hip and right wrist. It should be noted these are sites of previous fractures. Of concern was the fact that the patient reported she could not weight-bear on her right hip and is currently undergoing further evaluation of this complaint under the direction of Dr. Sudheer Hsu from Orthopedics. On review of this patient's past EMR she has a longstanding history of chronic hypertension, stable atherosclerotic heart disease, peripheral vascular disease, chronic renal insufficiency, history of lung and breast cancer, renal artery stenosis, hyperlipidemia, degenerative arthritis and old wrist and hip fractures. The patient has not been under any medical care for the previous year. ALLERGIES: DENIES ANY ALLERGIES TO MEDICATION. MEDICATIONS: When I questioned the patient if she was taking any medications as an outpatient, she said not in the past several months. SOCIAL HISTORY: The patient is a current nondrinker, nonsmoker and non IV drug misuser. FAMILY HISTORY: Noncontributory. REVIEW OF SYSTEMS: CONSTITUTIONAL: She denied fever or chills. HEAD: Denied head trauma. EYES: No change in visual acuity. EARS: No hearing loss. THROAT: No swallowing difficulty. NECK: No stiffness. CARDIOVASCULAR: Hypertension and atherosclerotic heart disease. PULMONARY: No cough. No hemoptysis. GI: No hematemesis. No melena. : No dysuria. SKIN: No rash. VASCULAR: No claudication, but she does have a history of peripheral vascular disease and renal artery stenosis. HEMATOLOGIC: Chronic anemia. MUSCULOSKELETAL: Chronic degenerative arthritis, old hip and wrist fractures. NEUROLOGICAL: No knowledge of stroke. PSYCHOLOGICAL: No anxiety, no depression. PHYSICAL EXAMINATION: GENERAL: At the time of my interview, this the patient was lying in bed, alert, oriented and in no acute distress. VITAL SIGNS: Temperature was 99.1, respirations 20, pulse 81 and blood pressure 174/79. HEAD: Normocephalic and atraumatic. EYES: No icterus. EARS: Clear. THROAT: Noninjected. NECK: Supple. HEART: Regular S1, S2. No pathological rubs or murmurs. No gallops. ABDOMEN: Soft. EXTREMITIES: No edema. SKIN: Without rash. NEUROLOGICAL: Intact. PSYCHOLOGICAL: Alert. VASCULAR: Legs warm to touch. LABORATORY DATA: White count 8000, hemoglobin 13.1, hematocrit 39.0 and platelets 145,000. Sodium 144, K 4.7, chloride 109, bicarb 24, BUN 18 and creatinine 1.5. Random blood sugar was 119. Iron was 25, TIBC was 281, percent saturation was 9 with a ferritin level of 211. Bilirubin 1.2, AST 42, ALT 37 and alk phos 118. Vitamin B12 is 325 and folate 17.1. T4 normal 7.7. Urinalysis showed 100 mg/dL of protein, trace bacteria and no leukocytes. Wrist x-ray was reviewed. It showed soft tissue swelling of the right wrist, extensive degenerative arthritic changes. Carpal crowding narrowing of the radiocarpal joint space, evidence of chronic radial ulnar fracture and deformity of her distal radius suspicious for a acute intra-articular fracture. Head CT was reviewed. It showed nonspecific white matter changes, generalized atrophy and no evidence of acute stroke or hemorrhage. EKG was reviewed. It showed sinus rhythm with a first-degree AV with nonspecific ST-T wave changes. Right hip CT was reviewed. It showed a right hip arthroplasty with subtle irregularity involving the right superior aspect of the pubic symphysis of unclear significance, no acute displaced fracture was noted. The patient was also noted to have cholelithiasis. IMPRESSION: This is an 88-year-old female with history of old right hip and right wrist fractures, now status post a fall at home with suggestion of repeat occult fractures of both right hip and wrist with comorbidities of anemia of chronic disease, iron-deficiency anemia, stable atherosclerotic heart disease, chronic hypertension, hyperlipidemia, chronic renal failure stage III, degenerative arthritis, possible urinary tract infection with longstanding history of noncompliance with diet and medication or medical followup. PLAN: As discussed with the patient and family at bedside will be to obtain a consultation with Dr. Sudheer Hsu from Orthopedics who most likely will be pursuing additional diagnostic x-rays for further evaluation of wrist and hip complaints. The patient will be reintroduced to medication including clonidine 0.1 mg p.o. every 4 hours p.r.n. accelerated hypertension, if systolic blood pressure should be greater than 160 or diastolic blood pressure should be greater than 100. She will be given Ecotrin 81 mg p.o. daily, Lipitor 20 mg p.o. at dinner time, a fasting lipid level has been ordered for the a.m., metoprolol tartrate 25 mg p.o. b.i.d., nitroglycerin 1 inch to chest wall every 4 hours, Tylenol 650 p.o. every 6 hours p.r.n. pain or temperature greater than 101 and Zofran 4 mg IV every 6 hours p.r.n. nausea and vomiting. She is ordered to have a heart-healthy renal diet. She is ordered to have physical therapy for reconditioning and gait training. A renal ultrasound has been ordered as well and once diagnostic workup has been completed, consideration for transitional care rehab will be entertained. Greater than 75 minutes was spent in the care management, review of labs, orders and x-rays and discussion of this patient with herself, her family at bedside, nurse Sravani Burton, registered nurse and Dr. Sudheer Hsu from Orthopedics. All questions were answered. Mary Ann Tom MD MTDJamal
--- NOTE | 2018-06-23 11:47 | PN ---
DATE: 06/23/2018 SUBJECTIVE: This 88-year-old female was examined at her bedside on the cardiac goetz on the morning of 06/23/2018. Her case was reviewed in detail with nurse, Dawn Barrera, registered nurse. The patient was seen earlier today by Zan Glaser from Social Service and the patient will be evaluated for TCU when medically stable. The patient was seen and evaluated by Dr. Sudheer Hsu from Orthopedics. Her head CT, wrist and hip x-rays have been reviewed. He feels she has a healed right hip fracture with osteoarthritis of the right hip and a healed right distal radial fracture that will require physical therapy and no surgery is being planned. Discussed at bedside with this patient were her history of iron-deficiency anemia for which she adamantly refuses any consideration of endoscopy or colonoscopy, fully aware that this ongoing issue could be consistent with a diagnosis of colon cancer. She also has chronic renal failure on the basis of chronic hypertension and probable renal vascular disease and admits she was not taking any medication while under no medical followup for the previous year. At present, she is alert and oriented. Denying any fever, chills, chest pain or shortness of breath. PHYSICAL EXAMINATION: VITAL SIGNS: She is in a normal sinus rhythm on monitoring specialist with temperature 98.7, respirations 20, pulse 64 and blood pressure 166/83 with a pulse ox of 94% on room air. HEENT: Head: Normocephalic, atraumatic. Eyes: No icterus. Ears: Clear. Throat: Noninjected. NECK: Supple. HEART: Regular S1, S2. No pathological rubs, murmurs or gallops. LUNGS: Clear. ABDOMEN: Soft. EXTREMITIES: No edema. SKIN: Without rash. NEUROLOGICAL: Intact. PSYCHOLOGICAL: Alert. VASCULAR: Legs warm to touch. The patient is markedly deconditioned. LABORATORY DATA: Sodium 141, K 4, chloride 111, bicarb 22, BUN 29, creatinine 1.8, random blood sugar 86, iron 25, TIBC 281, percent saturation nine, ferritin 211, bilirubin 1.2, AST 42, ALT 37, alk phos 118, cholesterol 166, triglycerides 71, LDL 86, HDL 66, B12 of 325, folate 17.1, T4 of 7.7. Urinalysis had trace bacteria. Urine culture is received and pending. IMPRESSION: An 88-year-old female, status post a trip and fall at home where she sustained pain and injury to her right wrist and right hip, previously fractured, but not acutely at present with also chronic renal failure stage 3, anemia of chronic disease, anemia of iron deficiency, hyperlipidemia, peripheral vascular disease, chronic hypertension and degenerative arthritis. As discussed with the patient and nursing, she will continue on the cardiac goetz on clonidine 0.1 mg p.o. every 4 hours p.r.n. accelerated hypertension if systolic blood pressure greater than 160 or diastolic blood pressure greater than 100, Ecotrin 81 mg p.o. daily, Lipitor 20 mg p.o. daily, metoprolol tartrate has been increased to 50 mg p.o. b.i.d., nitroglycerin 1 inch to chest wall every 4 hours, Tylenol 650 p.o. every 6 hours p.r.n. pain or fever and Zofran 4 mg IV every 6 hours p.r.n. nausea and vomiting. She is ordered to have a heart-healthy soft bland diet. She is ordered to have physical therapy for reconditioning and gait training and as discussed, the patient will be considered for TCU eval pending her clinical progress. I am awaiting urine culture results and all of the above was discussed for greater than 35 minutes with the patient, nursing, Dr. Sudheer Hsu from Orthopedics and Case Management. All questions were answered. Mary Ann Tom MD MTDJamal
--- NOTE | 2018-06-23 11:52 | CON ---
DATE: 06/21/2018 HISTORY OF PRESENT ILLNESS: This is an 88-year-old female, first seen by me for the consult on 03/22/2018, and I ordered x-ray of her right hip and when she was having after a fall prior to admission and she was admitted to the hospital on 06/21/2018. The right hip is stiff and the x-rays showed why it has decreased range of motion. She has osteoarthritis in the lateral portion of her femoroacetabular joint with a well-healed fracture of the right hip that occurred a couple of years ago and the pin is in good position, so the pin is not hurting her hip, its just the arthritis and at 88 years old, she does not want to consider a total hip replacement and she said she could handle the hip arthritis and she ambulates with a cane at home and does not go out into the community and basically is a home ambulator, not going for long walks on [place] [address], so I will just treat her symptomatically with the right hip pain from osteoarthritis but no surgery is planned for the total hip and make sure she does not fall again by doing physical therapy to gain her strength and co-ordination. Sudheer Hsu DO
[2018-06-24 00:13] VITALS: RESP 18
[2018-06-24] MEDS: Nitroglycerin 2% Ointment Foilpak UD TOP SCH ×3 (03:42→11:53)
[2018-06-24 05:43] VITALS: O2SAT 98
[2018-06-24 12:17] VITALS: BP 148/80; PULSE 53; TEMP 98.5
--- NOTE | 2018-06-24 12:24 | DS ---
DATE: 06/24/2018 SUBJECTIVE: This 88-year-old female remains hospitalized status post a fall at home where she sustained further injury to her right wrist and right hip that had been previously fractured. The patient was admitted with accelerated hypertension in the setting of noncompliance with diet and medication and at present denies any fever, chills, chest pain or shortness of breath. She is in normal sinus rhythm on the quality assurance monitor. PHYSICAL EXAMINATION: VITAL SIGNS: Temperature of 97.9, respirations 18, pulse 78 and blood pressure 167/80. Pulse ox is 98% room air. HEAD: Normocephalic and atraumatic. EYES: No icterus. EARS: Clear. THROAT: Noninjected. NECK: Supple. HEART: Regular S1, S2. LUNGS: Clear. ABDOMEN: Soft. EXTREMITIES: No edema. SKIN: Without rash. NEUROLOGICAL: Grossly intact, but deconditioned. PSYCHOLOGICAL: Alert. VASCULAR: Legs warm to touch. LABORATORY DATA: White count 7000, hemoglobin 11.8, hematocrit 35.7 and platelets 138,000. Sodium 141, K 4.0, chloride 111, bicarb 22, BUN 29 and creatinine 1.8. Estimated GFR 32 mL per minute. Calcium 8.8. Cholesterol 166, triglycerides 71, LDL 86 and HDL 66. T4 normal 7.7. Urinalysis showed 100 mg/dL of protein. IMPRESSION: This is an 88-year-old female status post a fall at home, also with history of old right wrist and right hip fractures, no acute fractures, accelerated hypertension, hyperlipidemia, chronic renal insufficiency stage III, degenerative arthritis, history of lung and breast cancers, history of peripheral vascular disease, history of noncompliance and on no medication as an outpatient for the past year. PLAN: At present is to continue clonidine 0.1 mg p.o. every 4 hours. p.r.n. accelerated hypertension if systolic blood pressure is greater than 160 or diastolic blood pressure is greater than 100. The patient will continue on Ecotrin 81 mg p.o. daily, Lipitor 20 mg p.o. daily, Lopressor 50 mg p.o. b.i.d., nitroglycerin 1 inch to chest wall every 4 hours, Tylenol 650 p.o. every 6 hours p.r.n. pain or temperature greater than 101 and Zofran 4 mg IV every 6 hours p.r.n. nausea and vomiting. She is ordered to have a heart-healthy renal diet. She is ordered to have physical therapy for reconditioning and gait training. I have placed a consultation for transitional care rehab and if the patient is accepted she will be cleared for discharge. It should be noted that a urine culture has been received by the lab but not reported, I will ask nursing to investigate this issue. Mary Ann Tom MD MTDD
== END 2018-06-24 15:10 | DRG 556 ==
LOC: ED 14:14 → ERH 19:15 → 2RNO 20:37
PROVIDERS: ADMIT Internal Medicine; ATTEND Internal Medicine
DX: M25.531 Pain in right wrist (principal); M25.551 Pain in right hip; I12.9 Hypertensive chronic kidney disease with stage 1 through stage 4 chronic kidney disease, or unspecified chronic kidney disease; N18.3 Chronic kidney disease, stage 3 (moderate); M16.11 Unilateral primary osteoarthritis, right hip; I25.10 Atherosclerotic heart disease of native coronary artery without angina pectoris; R55 Syncope and collapse; I73.9 Peripheral vascular disease, unspecified; D63.8 Anemia in other chronic diseases classified elsewhere; D50.9 Iron deficiency anemia, unspecified; W19.XXXA Unspecified fall, initial encounter; Z91.81 History of falling; Z91.11 Patient's noncompliance with dietary regimen; Z91.14 Patient's other noncompliance with medication regimen; Y92.009 Unspecified place in unspecified non-institutional (private) residence as the place of occurrence of the external cause

== ENCOUNTER 2018-06-24 15:13 | Inpatient (IN) | payer OTHER, BC ==
[2018-06-24] MEDS ORDERED: Nitroglycerin 2% Ointment Foilpak UD TOP SCH (16:30)
[2018-06-24] MEDS ORDERED: Nitroglycerin 2% Ointment Foilpak UD TOP PRN (16:44)
[2018-06-24] MEDS ORDERED: Influenza Vaccine 60 mcg/0.5 mL SYR (4YR UP) IM ONE (20:27)
[2018-06-24] MEDS ORDERED: Pneumococcal 23-Valent Vaccine IM ONE (20:27)
[2018-06-24 20:28] VITALS: BMI 16.6
--- NOTE | 2018-06-25 10:38 | HP ---
DATE OF EXAM: 06/25/2018 HISTORY OF PRESENT ILLNESS: This 88-year-old female was examined at her bedside on the morning of 06/25/2018. The patient is admitted for reconditioning, gait training and adjustment of antihypertensives after being admitted with syncope, accelerated hypertension and pain to her right wrist and right hip area that was previously fractured. The patient was under no medical care for the previous year. PAST MEDICAL HISTORY: Lung and breast cancers, chronic hypertension, chronic renal insufficiency, peripheral vascular disease, history of renovascular hypertension, degenerative arthritis and old right wrist and hip fracture. ALLERGIES: SHE HAS NO KNOWN ALLERGIES TO MEDICATION. SOCIAL HISTORY: She is nondrinking, nonsmoking, non IV drug misuser. 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 FAMILY HISTORY: Noncontributory. REVIEW OF SYSTEMS: Head review: No headache or seizure. Eye review: No change in visual acuity. Ear review: No hearing loss. Throat review: No swallowing difficulty. Neck review: No stiffness. Cardiac review: Chronic hypertension. Pulmonary: No cough. GI: No hematemesis. No melena. : No dysuria. Skin: No rash. Vascular: No claudication. Psychological: Alert and oriented. Neuro: Deconditioned. PHYSICAL EXAMINATION: VITAL SIGNS: Temperature 97.8. respirations 18, pulse 65 and blood pressure 142/70. HEENT: Head: Normocephalic, atraumatic. Eyes: No icterus. Ears: Clear. Throat: Noninjected. NECK: Supple. HEART: S1, S2. LUNGS: Clear. ABDOMEN: Soft. EXTREMITIES: No edema. SKIN: Without rash. NEUROLOGICAL: Deconditioned. VASCULAR: Legs warm to touch. PSYCHOLOGICAL: Alert and oriented x3. IMPRESSION: An 88-year-old female admitted with accelerated hypertension, status post fall at home with comorbidities of no medical treatment or followup for the previous year and history of hyperlipidemia, hypertension, degenerative arthritis, history of breast cancer, history of lung cancer, history of anemia of chronic disease and iron-deficiency anemia for which the patient refuses any consideration of endoscopy or colonoscopy and recent falls that were not consistent with acute fractures and the patient has been cleared by Dr. Sudheer Hsu from Orthopedics for ambulation and physical therapy. The patient will continue on clonidine 0.1 mg p.o. every 4 hours p.r.n. accelerated hypertension if systolic blood pressure is greater than 160 or diastolic blood pressure is greater than 100. PLAN: Also, to continue Ecotrin 81 mg p.o. daily, Lipitor 20 mg p.o. daily, Lopressor 50 mg p.o. b.i.d., Tylenol 650 p.o. every 6 hours p.r.n. pain, Zestril 10 mg p.o. daily and Zofran 4 mg IV every 6 hours p.r.n. nausea and vomiting. I have ordered basic metabolic panel and CBC for the a.m. She will have physical therapy for reconditioning and gait training. She will be followed by Dr. Sudheer Hsu from Orthopedics and all of the above was discussed in detail with the patient and nursing at bedside. All questions were answered Mary Ann Tom MD MTDD
[2018-06-26 06:56] LABS: HEMOGLOBIN 12.1 g/dL (12.0-16.0); MEAN CELL VOLUME 87.7 fl (80.0-105.0); MEAN CORPUSCULAR HEMOGLOBIN 28.7 pg (25.0-35.0); MEAN CORPUSCULAR HGB CONC 32.7 g/dl (31.0-37.0); MEAN PLATELET VOLUME 10.9 fl (7.0-11.0); RBC 4.22 10^6/uL (3.5-6.1); RED CELL DISTRIBUTION WIDTH 15.1 % (11.5-14.5); WHITE BLOOD COUNT 4.4 10^3/uL (4.5-11.0)
[2018-06-26 07:28] LABS: CALCIUM 8.5 mg/dL (8.4-10.5)
--- NOTE | 2018-06-26 16:35 | CP.PCM.PN ---
Subjective - Date & Time of Evaluation Date of Evaluation: 06/26/18 Time of Evaluation: 16:31 - Subjective Subjective: Primary medicine coverage for Dr. Mary Ann Tom; 88 yo F w/ pmh of htn, CKD IIIB, lung CA s/p lobectomy, breast CA s/p mastectomy, OA s/p R hip fracture, initially admitted after fall, now in TCU; Per nursing staff, not eating well; she says her appetite is returning; no BM in 2 days; doing well with PT, reports no dyspnea; Objective - Vital Signs/Intake and Output Vital Signs (last 24 hours): Temp Pulse Resp BP Pulse Ox 98.1 F 59 L 18 158/72 H 97 06/26/18 16:00 06/26/18 16:00 06/26/18 16:00 06/26/18 16:00 06/26/18 16:00 - Medications Medications: Current Medications Acetaminophen (Tylenol 325mg Tab) 650 mg PO Q6H PRN; Protocol PRN Reason: Fever >100.4 F Last Admin: 06/26/18 12:49 Dose: 650 mg Aspirin (Ecotrin) 81 mg PO 0800 [facility]; Protocol Last Admin: 06/26/18 08:07 Dose: 81 mg Atorvastatin Calcium (Lipitor) 20 mg PO DIN [facility] Last Admin: 06/25/18 17:34 Dose: 20 mg Clonidine HCl (Catapres) 0.1 mg PO Q4H PRN PRN Reason: Other Docusate Sodium (Colace) 100 mg PO BID [facility] Lisinopril (Zestril) 10 mg PO DAILY [facility] Last Admin: 06/26/18 10:22 Dose: 10 mg Metoprolol Tartrate (Lopressor) 50 mg PO 0800,1800 [facility]; Protocol Last Admin: 06/26/18 08:07 Dose: 50 mg Nitroglycerin (Nitro-Bid 2% Oint) 1 ea TOP Q4H PRN; Protocol PRN Reason: Other Ondansetron HCl (Zofran Inj) 4 mg IVP Q6H PRN PRN Reason: Nausea/Vomiting - Labs Labs: 06/26/18 06:00 06/26/18 06:00 - Constitutional Appears: Non-toxic, No Acute Distress - Eye Exam Eye Exam: Normal appearance - Respiratory Exam Respiratory Exam: Clear to Ausculation Bilateral. absent: Respiratory Distress - Cardiovascular Exam Cardiovascular Exam: RRR, +S1, +S2 - GI/Abdominal Exam GI & Abdominal Exam: Soft. absent: Distended, Tenderness - Exam Exam: absent: Bladder Distension - Extremities Exam Additional comments: no leg edema - Neurological Exam Neurological Exam: Alert, Awake - Psychiatric Exam Psychiatric exam: Normal Affect, Normal Mood. absent: Agitated - Skin Skin Exam: Warm. absent: Cyanosis Assessment and Plan (1) CKD (chronic kidney disease) stage 3, GFR 30-59 ml/min Assessment & Plan: Mild increase in serum creatinine from baseline (1.5); stable electrolyte and volume status; was following with outpatient precision agriculture specialist but hasn't done so in quite a while after stopping all her BP meds on her own; -checking urine for proteinuria; -avoid nephrotoxic agents; Status: Chronic (2) HTN (hypertension) Assessment & Plan: Fluctuating BP control; restarted on meds with metoprolol 50 bid and lisinopril 10 mg daily; continue same; no need for tight BP control in patient with frequent falls; clonidine 0.1 prn for SBP > 160, DBP > 100; Status: Acute (3) Osteoarthritis Assessment & Plan: Tylenol prn; orthopedics has discussed total hip replacement but patient declines at this time; Status: Chronic - Assessment and Plan (Free Text) Assessment: Will start colace for constipation; Continue ASA 81, lipitor 20 for cardioprotection;
[2018-06-27] MEDS ORDERED: POLYETHYLENE GLYCOL 3350 17 GM/Dose PACKET PO PRN (23:07)
[2018-06-28] MEDS ORDERED: Magnesium Hydroxide Susp 30 ml UD PO ONE (14:32)
--- NOTE | 2018-06-29 18:55 | PN ---
DATE: 06/28/2018 SUBJECTIVE: This 88-year-old female was examined at her bedside and her case was reviewed in detail with nurse, Millicent Nguyen. The patient complains of obstipation. There were no reports of fever, chills, chest pain or shortness of breath. She is cooperating with physical therapy. PHYSICAL EXAMINATION: VITAL SIGNS: Temperature was 97.3, respirations 67, pulse 52 and blood pressure 98/52. Pulse ox 100% on room air. HEENT: Head: Normocephalic, atraumatic. Eyes: No icterus. Ears: Clear. Throat: Noninjected. NECK: Supple. HEART: S1, S2. LUNGS: Clear. ABDOMEN: Soft. EXTREMITIES: No edema. SKIN: Without rash. NEUROLOGICAL: Intact. PSYCHOLOGICAL: Alert. VASCULAR: Legs warm to touch. LABORATORY DATA: White count 4400, hemoglobin 12.1, hematocrit 37, platelets 163,000. Sodium 141, K 3.8, chloride 111, bicarb 23, BUN 39, creatinine 1.8, estimated GFR 32 mL per minute, calcium 8.5. IMPRESSION: An 88-year-old female with deconditioning and comorbidities of chronic renal failure stage 3, chronic hypertension, anemia of chronic disease, iron-deficiency anemia, hyperlipidemia, now with obstipation. PLAN: The plan is to give this patient 30 mL of MOM and continue clonidine, Colace, Ecotrin, Lipitor, Lopressor, MiraLax, Tylenol, Zestril and Zofran. Based on clinical progress, additional diagnostic workup will be entertained. Ultimate plan will be for discharge to home when medically stable. Mary Ann Tom MD MTDJamal
--- NOTE | 2018-06-29 18:58 | PN ---
DATE: 06/29/2018 SUBJECTIVE: This 88-year-old female was examined at bedside and case was reviewed with nurse, Millicent Nguyen, registered nurse. The patient did have a good bowel movement after milk of magnesia and now continues on scheduled Colace with an order for MiraLax 17 g daily p.r.n. obstipation. PHYSICAL EXAMINATION: VITAL SIGNS: Temperature 98.5, respirations 20, pulse 60 and blood pressure 112/58. Pulse ox 94% on room air. Physical exam is unchanged. IMPRESSION: An 88-year-old female, status post obstipation with hypertension, chronic renal failure stage 3, hyperlipidemia and refusal for colonoscopy or endoscopy despite iron-deficiency anemia and anemia of chronic disease. PLAN: Plan is to continue clonidine, Colace, Ecotrin, Lipitor, Lopressor, MiraLax, Tylenol, Zestril and Zofran p.r.n. She continues with physical and occupational therapy, serial labs and ultimate plan will be for discharge to home when medically stable as reviewed with the patient and nurse, Millicent Nguyen, registered nurse. Mary Ann Tom MD
--- NOTE | 2018-06-30 12:12 | PN ---
DATE: The patient is suffering from right hip pain from osteoarthritis. She did have a subtrochanteric fracture a year and a half ago with good results, but now she has trouble with the hip fracture problem, but with the arthritis. She does not seem agreeable to total hip replacement. We will have to consider ambulation with a walker and anti-inflammatory medicines. If she does change her mind, I will be willing to do a total hip replacement to get rid of her pain, but being 88 years old, there is a higher risk of complications, but as far as the patient could tolerate mild discomfort in the right hip, we could avoid surgery. Sudheer Hsu DO
--- NOTE | 2018-06-30 19:20 | PN ---
DATE: 06/30/2018 SUBJECTIVE: This 88-year-old female was examined at bedside in the presence of nurse, Millicent Nguyen, and physical therapist, José Delgadillo. She was ambulating with her walker and being prepped for staircase climbing safety. She denied any fever, chills, chest pain, or shortness of breath and is having better bowel movements on Colace with p.r.n. MiraLax. PHYSICAL EXAMINATION: VITAL SIGNS: Temperature was 98.5, respirations 16, pulse 72, and blood pressure 110/63. HEENT: Head: Normocephalic, atraumatic. Eyes: No icterus. Ears: Clear. Throat: Noninjected. NECK: Supple. HEART: Regular. S1, S2. LUNGS: Clear. ABDOMEN: Soft. EXTREMITIES: No edema. SKIN: Without rash. NEUROLOGICAL: Intact. PSYCHOLOGICAL: Alert. VASCULAR: Legs warm to touch. LABORATORY DATA: White count 4400, hemoglobin 12.1, hematocrit 37, platelets 163,000. Sodium 141, potassium 3.8, chloride 111, bicarb 23, BUN 39, creatinine 1.8. Estimated GFR 32 mL per minute. IMPRESSION: An 88-year-old female with multiple medical problems including deconditioning, status post accelerated hypertension, history of noncompliance with medication and medical followup for the previous year and comorbidities of stable atherosclerotic heart disease, hyperlipidemia, chronic renal failure stage 3, anemia of chronic disease, iron-deficiency anemia for which the patient refuses any suggestion of colonoscopy or endoscopy or GI workup with barium enema or GI series. PLAN: The plan at present is to continue clonidine, Colace, Ecotrin, Lipitor, Lopressor, MiraLax, Tylenol, Zestril, and Zofran. The patient is being instructed on physical and occupational therapy for reconditioning and gait training with ultimate plan for discharge to home when medically stable. All of the above was reviewed with the patient, nursing, and physical therapy. All questions were answered. Mary Ann Tom MD
[2018-07-01 06:17] VITALS: RESP 20; O2SAT 97
[2018-07-01 15:58] VITALS: TEMP 97.6
--- NOTE | 2018-07-01 17:34 | PN ---
DATE: 07/01/2018 SUBJECTIVE: This 88-year-old female was examined at bedside on the afternoon of 07/01/2018. She denies fever, chills, chest pain or shortness of breath and is cooperating with physical therapy. PHYSICAL EXAMINATION: VITAL SIGNS: Temperature 98, respirations 20, pulse 61, and blood pressure 143/62 with pulse ox 97% on room air. HEENT: Head; normocephalic, atraumatic. Eyes, no icterus. NECK: Supple. HEART: S1, S2. LUNGS: Clear. ABDOMEN: Soft. EXTREMITIES: No edema. SKIN: Without rash. NEUROLOGICAL: Intact. PSYCHOLOGICAL: Alert. VASCULAR: Legs warm to touch. IMPRESSION AND PLAN: An 88-year-old female, improving from her deconditioned state with comorbidities of recent accelerated hypertension, hyperlipidemia, iron-deficiency anemia, anemia of chronic disease, degenerative arthritis, and noncompliance with medication or medical followup for the previous year. Plan is to continue Colace, Ecotrin, Lipitor, Lopressor, MiraLax, Zestril, and as-needed Tylenol. She will be readied for discharge to home in the a.m. with recommendation for outpatient followup in my medical office as an outpatient. Mary Ann Tom MD
[2018-07-02 09:00] VITALS: BP 133/69
[2018-07-02 10:26] VITALS: PULSE 55
--- NOTE | 2018-07-02 12:53 | DS ---
FINAL DIAGNOSES: Accelerated hypertension, improved; deconditioning; hyperlipidemia; degenerative arthritis status post right hip fracture in the distant past with repair and now with chronic degenerative arthritis and chronic renal insufficiency stage III. DISPOSITION: Home. Follow up in my office in 1 week. DISCHARGE MEDICATIONS: Colace 100 mg twice a day, Ecotrin 81 mg orally daily, Lipitor 20 mg orally at dinnertime, Lopressor 50 mg orally twice a day, Zestril 10 mg orally daily. SUMMARY: This 88-year-old female who was admitted to [facility] after a trip and fall at home with accelerated hypertension and pain in her left hip that was negative for acute fracture, is being discharged from [facility] after reconditioning and gait training on transitional care rehab. At the time of this evaluation, the patient is free of chest pain, shortness of breath and has no fever or chills. Temperature is 97.6, respirations 20, pulse 65 and blood pressure 133/69. Physical exam is stable. Sodium 141, K 3.8, chloride 111, bicarb 23, BUN 39, creatinine 1.8 and random blood sugar is 92. White count 4400, hemoglobin 12.1, hematocrit 37.0 and platelets 163,000. The patient is discharged to home to the care of her son and will be monitored in my office as an outpatient. All medications were reviewed in detail. All questions were answered. Mary Ann Tom MD
== END 2018-07-02 15:21 | disposition home or self-care (01) | DRG 554 ==
LOC: TRCU 15:13
PROVIDERS: ADMIT Internal Medicine; ATTEND Internal Medicine
PROC: F08Z3FZ Feeding/Eating Treatment using Assistive, Adaptive, Supportive or Protective Equipment (ICD-10-PCS; 2018-06-25)
PROC: F07Z9FZ Gait Training/Functional Ambulation Treatment using Assistive, Adaptive, Supportive or Protective Equipment (ICD-10-PCS; principal; 2018-06-26)
PROC: F07L6ZZ Therapeutic Exercise Treatment of Musculoskeletal System - Lower Back / Lower Extremity (ICD-10-PCS; 2018-06-26)
PROC: F07Z8FZ Transfer Training Treatment using Assistive, Adaptive, Supportive or Protective Equipment (ICD-10-PCS; 2018-06-27)
PROC: F08Z1FZ Dressing Techniques Treatment using Assistive, Adaptive, Supportive or Protective Equipment (ICD-10-PCS; 2018-06-27)
DX: M16.11 Unilateral primary osteoarthritis, right hip (principal); M25.531 Pain in right wrist; I12.9 Hypertensive chronic kidney disease with stage 1 through stage 4 chronic kidney disease, or unspecified chronic kidney disease; N18.3 Chronic kidney disease, stage 3 (moderate); I73.9 Peripheral vascular disease, unspecified; D50.9 Iron deficiency anemia, unspecified; D63.8 Anemia in other chronic diseases classified elsewhere; E78.5 Hyperlipidemia, unspecified; I25.10 Atherosclerotic heart disease of native coronary artery without angina pectoris; K59.00 Constipation, unspecified; Z85.118 Personal history of other malignant neoplasm of bronchus and lung; Z85.3 Personal history of malignant neoplasm of breast; Z90.10 Acquired absence of unspecified breast and nipple; Z91.14 Patient's other noncompliance with medication regimen